=== PATIENT | female | born 1935 | race Caucasian/White ===

== ENCOUNTER 2017-02-09 20:58 | Emergency (ER) | payer OTHER ==
--- NOTE | 2017-02-09 21:12 | EDPHY ---
H & P Stated Complaint: ETOH,pt found laying face down in kitchen by HPI/ROS: HPI CHIEF COMPLAINT: Alcohol intoxication, found down HISTORY OF PRESENT ILLNESS: This patient very pleasant 81-year-old female, she presents emergency room by EMS after 911 was called and she was lying face down on her kitchen floor. She does admit to drinking wine this evening. Unclear exactly how much she drank. Upon arrival to the emergency room she smells of alcohol and is highly intoxicated. Slurring her speech. She has no recollection of the events. Family found her face down. Unknown LOC. Patient denies trauma or pain anywhere. Past Medical History: Denies significant medical history Past Surgical History: Denies recent surgical history Social History: Denies daily use of drugs alcohol tobacco products was drinking alcohol this evening. at bedside, son at bedside. Family History: Noncontributory ROS REVIEW OF SYSTEMS: A comprehensive 10 point review of systems is otherwise negative aside from elements mentioned in the history of present illness. Exam Constitutional smells of alcohol, triage nursing summary reviewed, vital signs reviewed, awake/alert. Eyes normal conjunctivae and sclera, EOMI, PERRLA. HENT head/neck: Atraumatic, normal inspection, atraumatic, moist mucus membranes, no epistaxis, neck supple/ no meningismus, no raccoon eyes. Respiratory clear to auscultation bilaterally, normal breath sounds, no respiratory distress, no wheezing. Cardiovascular rate normal, regular rhythm, no murmur, no edema, distal pulses normal. Gastrointestinal soft, non-tender, no rebound, no guarding, normal bowel sounds, no distension, no pulsatile mass. Genitourinary no CVA tenderness. Musculoskeletal no midline vertebral tenderness, full range of motion, no calf swelling, no tenderness of extremities, no meningismus, good pulses, neurovascularly intact. Skin pink, warm, & dry, no rash, skin atraumatic. Neurologic horizontal beating nystagmus consistent with acute alcohol intoxication awake, alert and oriented x 3, AAOx3, moves all 4 extremities equally, motor intact, sensory intact, CN II-XII intact, normal cerebellar, normal vision, slurring speech Psychiatric normal mood/affect. Heme/Lymph/Immune no lymphadenopathy. Differential Diagnosis: Includes but is not limited to in a particular order acute alcohol intoxication, electrolyte disturbance, dehydration, intracranial bleed, skull fracture Medical Decision Making: Plan for this patient check basic blood work and alcohol level, CT head without contrast for trauma. Re-evaluation: CT scan of the head without IV contrast The results of the study are atrophy but no acute trauma.. The study was read by Dr. Melida Cole I viewed the images myself on the PACS system. 2231: Serum alcohol 253. 2236: Re-evaluation at this time patient resting comfortably. Requesting be discharged home. Son at bedside would like to take her home. at bedside. Blood work is reassuring, alcohol level 253. CT head shows no acute intracranial trauma given acute alcohol intoxication and found down on the floor. Patient mentating appropriately she does have slurred speech. Stable gait she would like to go home with her son son is agreeable with this. Source: Patient - Personal History Current Tetanus/Diphtheria Vaccine: Unsure Current Tetanus Diphtheria and Acellular Pertussis (TDAP): Unsure - Medical/Surgical History Hx Asthma: No Hx Chronic Respiratory Disease: No Hx Diabetes: No Hx Cardiac Disease: No Hx Renal Disease: No Hx Cirrhosis: No Hx Alcoholism: No Hx HIV/AIDS: No Hx Splenectomy or Spleen Trauma: No Other PMH: cataracts - Social History Smoking Status: Never smoked Constitutional: Initial Vital Signs Temperature (C) 36.8 C 02/09/17 21:09 Heart Rate 93 02/09/17 21:09 Respiratory Rate 20 02/09/17 21:09 Blood Pressure 165/84 H 02/09/17 21:09 O2 Sat (%) 97 02/09/17 21:09 O2 Delivery Mode Room Air Allergies/Adverse Reactions: streptomycin [Streptomycin] Allergy (Severe, Verified 02/09/17 21:10) Swelling, itching Kiwi fruit Allergy (Severe, Uncoded 08/27/10 13:47) Difficulty breathing Home Medications: Medication Instructions Recorded AMBIEN 03/13/10 Medical Decision Making - Diagnostics Imaging Results: Imaging Impressions Head CT 02/09/17 21:25 Impression: Atrophy and microvascular ischemic disease. Findings and recommendations discussed with Shad Alexandra MD at 2200 hour, . Final report concurs with initial preliminary interpretation. - Data Points Laboratory Results: Laboratory Results 02/09/17 21:28 02/09/17 21:28 05/16/17 05/16/17 05/16/17 21:28 21:28 21:28 WBC 5.85 10^3/uL 10^3/uL (3.80-9.50) RBC 4.53 10^6/uL 10^6/uL (4.18-5.33) Hgb 15.0 g/dL g/dL (12.6-16.3) Hct 44.4 % % (38.0-47.0) MCV 98.0 fL fL (81.5-99.8) MCH 33.1 pg pg (27.9-34.1) MCHC 33.8 g/dL g/dL (32.4-36.7) RDW 12.5 % % (11.5-15.2) Plt Count 162 10^3/uL 10^3/uL (150-400) MPV 9.8 fL fL (8.7-11.7) Neut % (Auto) 50.2 % % (39.3-74.2) Lymph % (Auto) 41.4 % % (15.0-45.0) [place] % (Auto) 6.3 % % (4.5-13.0) Eos % (Auto) 1.4 % % (0.6-7.6) Baso % (Auto) 0.5 % % (0.3-1.7) Nucleat RBC Rel Count 0.0 % % (0.0-0.2) Absolute Neuts (auto) 2.94 10^3/uL 10^3/uL (1.70-6.50) Absolute Lymphs (auto) 2.42 10^3/uL 10^3/uL (1.00-3.00) Absolute Monos (auto) 0.37 10^3/uL 10^3/uL (0.30-0.80) Absolute Eos (auto) 0.08 10^3/uL 10^3/uL (0.03-0.40) Absolute Basos (auto) 0.03 10^3/uL 10^3/uL (0.02-0.10) Absolute Nucleated RBC 0.00 10^3/uL 10^3/uL (0-0.01) Immature Gran % 0.2 % % (0.0-1.1) Immature Gran # 0.01 10^3/uL 10^3/uL (0.00-0.10) PT 12.8 SEC SEC (12.0-15.0) INR 0.97 (0.83-1.16) APTT 23.8 SEC SEC (23.0-38.0) Sodium 144 mEq/L mEq/L (134-144) Potassium 3.9 mEq/L mEq/L (3.5-5.2) Chloride 108 mEq/L mEq/L (97-110) Carbon Dioxide 23 mEq/l mEq/l (22-31) Anion Gap 13 mEq/L mEq/L (8-16) BUN 18 mg/dL mg/dL (7-23) Creatinine 0.7 mg/dL mg/dL (0.6-1.0) Estimated GFR > 60 Glucose 96 mg/dL mg/dL (70-100) Calcium 9.2 mg/dL mg/dL (8.5-10.4) Ethyl Alcohol 253 mg/dL H mg/dL (0-10) Departure - Departure Disposition: Home, Routine, Self-Care Clinical Impression: Alcoholic intoxication Qualifiers: Complication of substance-induced condition: uncomplicated Qualified Code(s): F10.120 - Alcohol abuse with intoxication, uncomplicated Condition: Good Instructions: Alcohol Intoxication (ED) Referrals: Patient,NotPresent [Primary Care Provider] - As per Instructions
[2017-02-09 21:36] LABS: % IMMATURE GRANULYOCYTES 0.2 % (0.0-1.1); ABSOLUTE IMMATURE GRANULOCYTES 0.01 10^3/uL (0.00-0.10); ADD DIFF? NO; ADD MORPH? NO; ADD SCAN? NO; ATYPICAL LYMPHOCYTE FLAG 20 (0-99); FRAGMENT RBC FLAG 0 (0-99); HEMATOCRIT 44.4 % (38.0-47.0); LEFT SHIFT FLG 0 (0-99); LIPEMIA HEMOLYSIS FLAG 90 (0-99); MEAN CELL HEMOGLOBIN 33.1 pg (27.9-34.1); MEAN CELL HEMOGLOBIN CONCENTR. 33.8 g/dL (32.4-36.7); MEAN PLATELET VOLUME 9.8 fL (8.7-11.7); PLATELET CLUMPS FLAG 0 (0-99); PLATELET COUNT 162 10^3/uL (150-400); RED BLOOD CELL COUNT 4.53 10^6/uL (4.18-5.33); RED CELL DISTRIBUTION WIDTH 12.5 % (11.5-15.2)
[2017-02-09 21:44] LABS: INR 0.97 (0.83-1.16); PROTIME(PATIENT) 12.8 SEC (12.0-15.0)
[2017-02-09 21:45] LABS: APTT 23.8 SEC (23.0-38.0)
[2017-02-09 22:08] LABS: ANION GAP 13 mEq/L (8-16); CALCIUM 9.2 mg/dL (8.5-10.4); CARBON DIOXIDE 23 mEq/l (22-31); CHLORIDE 108 mEq/L (97-110); CREATININE 0.7 mg/dL (0.6-1.0); ETHANOL SERUM 253 mg/dL (0-10); GLOMERULAR FILTRATION RATE > 60; GLUCOSE 96 mg/dL (70-100); POTASSIUM 3.9 mEq/L (3.5-5.2); SODIUM 144 mEq/L (134-144)
[2017-02-09 23:01] VITALS: RESP 16
[2017-02-09 23:15] VITALS: BP 164/91; PULSE 74; TEMP 97.7; O2SAT 95
== END 2017-02-09 23:15 | disposition home or self-care (01) ==
LOC: EDUNIT#
DX: F10.120 Alcohol abuse with intoxication, uncomplicated (principal)
CPT/HCPCS: G0480

== ENCOUNTER 2017-04-25 21:55 | Inpatient (IN) | payer OTHER ==
--- NOTE | 2017-04-25 22:07 | EDPHY ---
H & P Stated Complaint: word finding difficulty HPI/ROS: HPI CHIEF COMPLAINT: Dysarthria, word-finding difficulty, word salad HISTORY OF PRESENT ILLNESS: This patient 81-year-old female, does not take any daily medications, she presents emergency room by private vehicle with her sons at bedside and . Her son noticed around 115PM today while he was visiting her to bring her food that she had trouble getting her words out and word salad with speech difficulties. He states this pretty much lasted throughout the day. He went to check on her tonight again and realized that she was still having trouble with her words and so he encouraged her to come to the emergency room she had however she did not want to come. Finally both sons convinced her to come to the emergency room at around 10:00 p.m.. Her one son does report to me that on he was speaking to her over the phone about a document and she had great difficulty describing what the document said this is highly unlike her cording to her son. They are concerned that she may have had a stroke today. They also report a very unsteady slow gait. Also report recurrent falls over the past few years. Of note upon arrival here in emergency room blood pressure is 215 systolic over 90. Heart rate 80. She does not take any blood pressure medication. Additionally the patient tells me her left face feels funny she does not described as well she denies being numb or tingling, denies insensate her change from her right side her face. She tells me left-sided face feels different. Denies any focal weakness. Denies chest pain or shortness of breath. Additionally she did take 2 baby aspirin prior to arrival. Past Medical History: Denies any significant medical history, specifically denies hypertension. Breast cancer. Past Surgical History: Cataract surgery, breast cancer surgery Social History: Frequent alcohol use, denies drugs or tobacco. at bedside. Son is at bedside. Family History: Noncontributory ROS REVIEW OF SYSTEMS: A comprehensive 10 point review of systems is otherwise negative aside from elements mentioned in the history of present illness. Exam Constitutional appears well nontoxic triage nursing summary reviewed, vital signs reviewed, awake/alert. Blood pressure noted 215/90. Eyes normal conjunctivae and sclera, EOMI, PERRLA. HENT normal inspection, atraumatic, moist mucus membranes, no epistaxis, neck supple/ no meningismus, no raccoon eyes. Respiratory clear to auscultation bilaterally, normal breath sounds, no respiratory distress, no wheezing. Cardiovascular rate normal, regular rhythm, no murmur, no edema, distal pulses normal. Gastrointestinal soft, non-tender, no rebound, no guarding, normal bowel sounds, no distension, no pulsatile mass. Genitourinary no CVA tenderness. Musculoskeletal no midline vertebral tenderness, full range of motion, no calf swelling, no tenderness of extremities, no meningismus, good pulses, neurovascularly intact. Skin pink, warm, & dry, no rash, skin atraumatic. Neurologic awake, alert and oriented x 3, AAOx3, moves all 4 extremities equally, motor intact, sensory intact, CN II-XII intact, normal cerebellar, normal vision, some slow response with her speech I do not appreciate dysarthria , she appears to have some word-finding difficulties. Appears to answer questions with short answers. Psychiatric normal mood/affect. Heme/Lymph/Immune no lymphadenopathy. Differential Diagnosis: Includes but is not limited to in a particular order, hypertensive urgency, hypertensive emergency, CVA, TIA, intracranial bleed Medical Decision Making: Plan for this patient workup for stroke, she will need full registered nurse cardiac telemetry, EKG, blood work, coags, CT angio head and neck CT head without contrast. She does not meet tPA criteria as the symptoms started according to her son around 115 today possibly earlier. As earlier in the week on she was having trouble with describing a letter. Highly unlike her. Reason she does not meet tPA criteria she is out of the window. Re-evaluation: EKG interpretation by me on record in [employer] system. Impression time of EKG 4. This is sinus rhythm rate of 88, some motion artifact in the inferior leads however Q-waves noted V1 V2 V3. 2240PM: Re-evaluation at this time blood pressure 189/80 without intervention. Heart rate 87. 2335: CT scan of the angiogram head and neck,. The results of the study are negative for acute aneurysm, bleed, infarct, thrombus The study was read by Dr. Schreiber I viewed the images myself on the PACS system. CT scan of the head without IV contrast The results of the study are negative for acute bleed or stroke.. The study was read by Dr. Schreiber I viewed the images myself on the PACS system. ED x-ray chest one view: COPD appearing lungs. Otherwise unremarkable chest x- ray. 2336: Patient remained stable. Blood pressure currently 153/70. Patient be admitted to the hospitalist service for further evaluation and CVA workup. Patient will need an MRI. Neurology will need to be consult. At this time she does not have any indication for tPA. Her symptoms have not progressed here in emergency room. Her CT head angio are unremarkable. Blood work reassuring. Blood pressures improved on its own. 1205AM: Patient be admitted to the hospitalist service Dr. Ruiz to complete stroke evaluation and workup. 1247AM: Patient's urinalysis resulted 1+ leukocyte Estrace and whites. Given her confusion. I will treat this. Urine culture sent. 1 g Rocephin given. Source: Patient - Personal History Current Tetanus/Diphtheria Vaccine: Yes Current Tetanus Diphtheria and Acellular Pertussis (TDAP): Yes - Medical/Surgical History Hx Asthma: Yes Hx Chronic Respiratory Disease: No Hx Diabetes: No Hx Cardiac Disease: No Hx Renal Disease: No Hx Cirrhosis: No Hx Alcoholism: No Hx HIV/AIDS: No Hx Splenectomy or Spleen Trauma: No Other PMH: cataracts, asthma, - Social History Smoking Status: Never smoked Constitutional: Initial Vital Signs Temperature (C) 36.8 C 04/25/17 22:01 Heart Rate 74 04/25/17 22:01 Respiratory Rate 16 04/25/17 22:01 Blood Pressure 205/137 H 04/25/17 22:01 O2 Sat (%) 96 04/25/17 22:01 O2 Delivery Mode Room Air Allergies/Adverse Reactions: streptomycin [Streptomycin] Allergy (Severe, Verified 04/25/17 22:00) Swelling, itching Kiwi fruit Allergy (Severe, Uncoded 04/25/17 22:00) Difficulty breathing Home Medications: Medication Instructions Recorded AMBIEN 03/13/10 Medical Decision Making - Diagnostics Imaging Results: Imaging Impressions Chest X-Ray 04/25/17 22:19 Impression: 1. Mild increase in scarring at the right lung base and left apex. 2. Hyperexpanded lungs suggestive of COPD/emphysema. 3. Stable moderate anterior wedge compression fracture mid thoracic spine. If indicated, consider DEXA scan at some point to evaluate underlying bone mineral density. Head CT 04/25/17 22:19 Impression: 1. Stable moderate atrophy. 2. No hemorrhage, mass effect, or definite acute peripheral infarct. 3. Stable moderate microvascular ischemic disease. If symptoms worsen, additional imaging may be necessary. Findings discussed with Shad Alexandra MD at 23:20 hour, 04/25/2017. Head CTA 04/25/17 22:19 Impression: 1. No evidence of stenosis involving the carotid arteries or vertebral arteries in the neck. Moderate stenosis mid ICA bilaterally. 2. Normal variation around the [place] as detailed above. 3. Moderate stenosis proximal to mid right posterior cerebral artery. Note: All calculations were performed using NASCET criteria. Findings discussed with Shad Alexandra MD at 23:34 hour, 04/25/2017. Neck CTA 04/25/17 22:19 Impression: 1. No evidence of stenosis involving the carotid arteries or vertebral arteries in the neck. Moderate stenosis mid ICA bilaterally. 2. Normal variation around the [place] as detailed above. 3. Moderate stenosis proximal to mid right posterior cerebral artery. Note: All calculations were performed using NASCET criteria. Findings discussed with Shad Alexandra MD at 23:34 hour, 04/25/2017. - Data Points Laboratory Results: Laboratory Results 04/25/17 22:14 04/25/17 22:14 04/25/17 04/25/17 04/25/17 23:30 22:14 22:14 WBC RBC Hgb Hct MCV MCH MCHC RDW Plt Count MPV Neut % (Auto) Lymph % (Auto) [place] % (Auto) Eos % (Auto) Baso % (Auto) Nucleat RBC Rel Count Absolute Neuts (auto) Absolute Lymphs (auto) Absolute Monos (auto) Absolute Eos (auto) Absolute Basos (auto) Absolute Nucleated RBC Immature Gran % Immature Gran # PT 13.4 SEC SEC (12.0-15.0) INR 1.03 (0.83-1.16) APTT 25.2 SEC SEC (23.0-38.0) Sodium 143 mEq/L mEq/L (134-144) Potassium 3.5 mEq/L mEq/L (3.5-5.2) Chloride 107 mEq/L mEq/L (97-110) Carbon Dioxide 22 mEq/l mEq/l (22-31) Anion Gap 14 mEq/L mEq/L (8-16) BUN 21 mg/dL mg/dL (7-23) Creatinine 0.7 mg/dL mg/dL (0.6-1.0) Estimated GFR > 60 Glucose 91 mg/dL mg/dL (70-100) Calcium 9.5 mg/dL mg/dL (8.5-10.4) Magnesium 1.9 mg/dL mg/dL (1.6-2.3) Total Bilirubin 1.2 mg/dL mg/dL (0.1-1.4) Conjugated Bilirubin 0.3 mg/dL mg/dL (0.0-0.5) Unconjugated Bilirubin 0.9 mg/dL mg/dL (0.0-1.1) AST 28 IU/L IU/L (14-46) ALT 33 IU/L IU/L (9-52) Alkaline Phosphatase 91 IU/L IU/L (38-126) Creatine Kinase 68 IU/L IU/L (0-156) CK-MB (CK-2) Fraction 2.23 ng/mL ng/mL (0-3.19) Troponin I < 0.012 ng/mL ng/mL (0-0.034) NT-Pro-B Natriuret Pep 174 pg/mL pg/mL (0-450) Total Protein 7.2 g/dL g/dL (6.3-8.2) Albumin 4.6 g/dL g/dL (3.5-5.0) Lipase 358.0 IU/L H IU/L (23-300) Urine Color COLORLESS Urine Appearance CLEAR Urine pH 6.0 (5.0-7.5) Ur Specific [place] 1.016 (1.002-1.030) Urine Protein NEGATIVE (NEGATIVE) Urine Ketones TRACE H (NEGATIVE) Urine Blood NEGATIVE (NEGATIVE) Urine Nitrate NEGATIVE (NEGATIVE) Urine Bilirubin NEGATIVE (NEGATIVE) Urine Urobilinogen NEGATIVE EU EU (0.2-1.0) Ur Leukocyte Esterase 1+ H (NEGATIVE) Urine RBC 1-3 /hpf /hpf (0-3) Urine WBC 15-25 /hpf H /hpf (0-3) Ur Epithelial Cells Not Reported Urine Mucus TRACE /lpf /lpf (NONE-1+) Urine Glucose NEGATIVE (NEGATIVE) Ethyl Alcohol < 10 mg/dL mg/dL (0-10) 04/25/17 22:14 WBC 6.50 10^3/uL 10^3/uL (3.80-9.50) RBC 4.28 10^6/uL 10^6/uL (4.18-5.33) Hgb 14.0 g/dL g/dL (12.6-16.3) Hct 41.6 % % (38.0-47.0) MCV 97.2 fL fL (81.5-99.8) MCH 32.7 pg pg (27.9-34.1) MCHC 33.7 g/dL g/dL (32.4-36.7) RDW 12.0 % % (11.5-15.2) Plt Count 156 10^3/uL 10^3/uL (150-400) MPV 9.6 fL fL (8.7-11.7) Neut % (Auto) 51.1 % % (39.3-74.2) Lymph % (Auto) 39.7 % % (15.0-45.0) [place] % (Auto) 7.8 % % (4.5-13.0) Eos % (Auto) 0.9 % % (0.6-7.6) Baso % (Auto) 0.3 % % (0.3-1.7) Nucleat RBC Rel Count 0.0 % % (0.0-0.2) Absolute Neuts (auto) 3.32 10^3/uL 10^3/uL (1.70-6.50) Absolute Lymphs (auto) 2.58 10^3/uL 10^3/uL (1.00-3.00) Absolute Monos (auto) 0.51 10^3/uL 10^3/uL (0.30-0.80) Absolute Eos (auto) 0.06 10^3/uL 10^3/uL (0.03-0.40) Absolute Basos (auto) 0.02 10^3/uL 10^3/uL (0.02-0.10) Absolute Nucleated RBC 0.00 10^3/uL 10^3/uL (0-0.01) Immature Gran % 0.2 % % (0.0-1.1) Immature Gran # 0.01 10^3/uL 10^3/uL (0.00-0.10) PT INR APTT Sodium Potassium Chloride Carbon Dioxide Anion Gap BUN Creatinine Estimated GFR Glucose Calcium Magnesium Total Bilirubin Conjugated Bilirubin Unconjugated Bilirubin AST ALT Alkaline Phosphatase Creatine Kinase CK-MB (CK-2) Fraction Troponin I NT-Pro-B Natriuret Pep Total Protein Albumin Lipase Urine Color Urine Appearance Urine pH Ur Specific [place] Urine Protein Urine Ketones Urine Blood Urine Nitrate Urine Bilirubin Urine Urobilinogen Ur Leukocyte Esterase Urine RBC Urine WBC Ur Epithelial Cells Urine Mucus Urine Glucose Ethyl Alcohol Medications Given: Discontinued Medications Sodium Chloride (Ns) 1,000 mls @ 0 mls/hr IV ONCE ONE; Wide Open PRN Reason: Protocol Stop: 04/25/17 22:20 Last Admin: 04/25/17 22:27 Dose: 1,000 mls Departure - Departure Disposition: [facility] Clinical Impression: Word finding difficulty Hypertension Qualifiers: Hypertension type: essential hypertension Qualified Code(s): I10 - Essential ( primary) hypertension Urinary tract infection Qualifiers: Urinary tract infection type: acute cystitis Hematuria presence: without hematuria Qualified Code(s): N30.00 - Acute cystitis without hematuria Condition: Fair
--- NOTE | 2017-04-25 22:16 | CPEKG ---
Heart Rate: 88 RR Interval: 682 P-R Interval: 172 QRSD Interval: 80 QT Interval: 360 QTC Interval: 436 P [place]: 47 QRS [place]: 79 EKG Severity - ABNORMAL ECG - EKG Impression: SINUS RHYTHM EKG Impression: Artifact Electronically Signed By: Baldemar Lara 28-Apr-2017 10:55:33
[2017-04-25] MEDS ORDERED: NS 1,000 ML IV ONE (22:19)
[2017-04-25 22:32] LABS: % IMMATURE GRANULYOCYTES 0.2 % (0.0-1.1); ABSOLUTE IMMATURE GRANULOCYTES 0.01 10^3/uL (0.00-0.10); ADD DIFF? NO; ADD MORPH? NO; ADD SCAN? NO; ATYPICAL LYMPHOCYTE FLAG 20 (0-99); FRAGMENT RBC FLAG 0 (0-99); HEMATOCRIT 41.6 % (38.0-47.0); LEFT SHIFT FLG 0 (0-99); LIPEMIA HEMOLYSIS FLAG 80 (0-99); MEAN CELL HEMOGLOBIN 32.7 pg (27.9-34.1); MEAN CELL HEMOGLOBIN CONCENTR. 33.7 g/dL (32.4-36.7); MEAN CELL VOLUME 97.2 fL (81.5-99.8); MEAN PLATELET VOLUME 9.6 fL (8.7-11.7); PLATELET CLUMPS FLAG 60 (0-99); PLATELET COUNT 156 10^3/uL (150-400); RED BLOOD CELL COUNT 4.28 10^6/uL (4.18-5.33)
[2017-04-25] MEDS ORDERED: IOPAMIDOL (ISOVUE 370) 100 ML BTL IV ONE (22:39)
[2017-04-25 22:40] LABS: INR 1.03 (0.83-1.16); PROTIME(PATIENT) 13.4 SEC (12.0-15.0)
[2017-04-25 22:41] LABS: APTT 25.2 SEC (23.0-38.0)
[2017-04-25 22:44] LABS: ALANINE AMINOTRANSFERASE 33 IU/L (9-52); ALBUMIN 4.6 g/dL (3.5-5.0); ALKALINE PHOSPHATASE 91 IU/L (38-126); ANION GAP 14 mEq/L (8-16); ASPARTATE AMINOTRANSFERASE 28 IU/L (14-46); BILIRUBIN,TOTAL 1.2 mg/dL (0.1-1.4); BILIRUBIN-CONJUGATED 0.3 mg/dL (0.0-0.5); BILIRUBIN-UNCONJUGATED 0.9 mg/dL (0.0-1.1); CALCIUM 9.5 mg/dL (8.5-10.4); CARBON DIOXIDE 22 mEq/l (22-31); CHLORIDE 107 mEq/L (97-110); CREATININE 0.7 mg/dL (0.6-1.0); ETHANOL SERUM < 10 mg/dL (0-10); GLOMERULAR FILTRATION RATE > 60; GLUCOSE 91 mg/dL (70-100); MAGNESIUM 1.9 mg/dL (1.6-2.3); POTASSIUM 3.5 mEq/L (3.5-5.2); SODIUM 143 mEq/L (134-144); TOTAL PROTEIN 7.2 g/dL (6.3-8.2)
[2017-04-25 22:56] LABS: CREATINE KINASE-MB FRACTION 2.23 ng/mL (0-3.19); TROPONIN I < 0.012 ng/mL (0-0.034)
[2017-04-25 23:47] LABS: COLOR COLORLESS; LEUKOCYTE ESTERASE,URINE 1+ (NEGATIVE); NITRITE,URINE NEGATIVE (NEGATIVE)
[2017-04-26 00:15] LABS: MUCUS TRACE /lpf (NONE-1+); WBC,URINE 15-25 /hpf (0-3)
[2017-04-26] MEDS ORDERED: ACETAMINOPHEN 325 MG TAB PO PRN (01:35)
[2017-04-26] MEDS ORDERED: oxyCODONE IR 5 MG TAB PO PRN (01:35)
[2017-04-26] MEDS ORDERED: ONDANSETRON DISINTEGRATING 4 MG TAB PO PRN (01:35)
[2017-04-26] MEDS ORDERED: ONDANSETRON 4 MG/2 ML VIAL IVP PRN (01:35)
[2017-04-26] MEDS ORDERED: LABETALOL HCL 5 MG/ML 20 ML MDV IVP PRN (01:35)
[2017-04-26] MEDS ORDERED: PROMETHAZINE HCL 25 MG/ML INJ IVP PRN (01:35)
--- NOTE | 2017-04-26 03:04 | PDGENHP ---
History and Physical - Chief Complaint word finding difficulties - History of Present Illness 81 yo F with PMH of breast and cervical cancer as well as daily etoh use presenting with 4 days of word finding difficulty and slurred speech. Additional history is provided by son present at bedside. He notes that he and his brother initially noticed symptoms on when their mom seemed to have difficulty finding the right words to use and was having issues doing normal things that she does every day such as use her iPad and operate the mouse on her computer. Today the son present at bedside notes that his mother left him a voicemail that made no sense at all and therefore he went to check on her. She seemed to have increasing issues with speech over the course of the day, would answer questions with one word only or with what seemed to be random series of words that made no sense. Her speech also sounded slurred and she was having gait instability. She also complained of a strange feeling on her left cheek--she denies it was numbness but is unable to describe exactly what it felt like. Since arrival in the ER she has also developed urinary incontinence which has never been an issue for her in the past. She initially denied that she was having any issues with speech, but after attempting to answer questions while I was in the room, she does admit that she is having a hard time finding the words she wants to use--she states she knows what she wants to say, but the words come out wrong. She was recently seen in the ER here for a fall in the setting of intoxication with BAL at that time greater than 250. She notes she has been drinking including earlier today but denies having more than 1 or 2 drinks today. She has not had fever or chills, denies urinary burning, she has never had similar issues in the past. History Information - Allergies/Home Medication List Allergies/Adverse Reactions: streptomycin [Streptomycin] Allergy (Severe, Verified 04/25/17 22:00) Swelling, itching Kiwi fruit Allergy (Severe, Uncoded 04/25/17 22:00) Difficulty breathing Home Medications: AMBIEN 03/13/10 [Last Taken Unknown] I have personally reviewed and updated: family history, medical history, social history, surgical history - Past Medical History cancer (breast, cervical and basal cell) Additional medical history: hx of TB s/p partial lobectomy - Surgical History Reports: hysterectomy, mastectomy Additional surgical history: cataract surgery. partial lobectomy - Family History Positive for: cancer (aunts with breast cancer) - Social History Smoking Status: Never smoked Alcohol Use: Other (average of 1-2 per day) Drug Use: None Additional social history: , 2 sons, lives independently with her Review of Systems ROS: 10pt was reviewed & negative except for what was stated in HPI & below Physical Exam Temp Pulse Resp BP Pulse Ox 36.5 C 97 18 169/81 H 94 04/26/17 01:27 04/26/17 01:27 04/26/17 01:27 04/26/17 01:27 04/26/17 01:27 Constitutional: no apparent distress, appears nourished Eyes: anicteric sclera, No PERRL (anisocoria--right > left) Ears, Nose, Mouth, Throat: moist mucous membranes, hearing normal Cardiovascular: regular rate and rhythym, systolic murmur, pulses symmetric bilaterally, No edema Respiratory: no respiratory distress, no rales or rhonchi, clear to auscultation Gastrointestinal: normoactive bowel sounds, soft, non-tender abdomen Genitourinary: No no bladder tenderness Skin: warm, normal color Musculoskeletal: full muscle strength Neurologic: CN II-XII Intact (other than anisocoria which is chronic), other ( expressive aphasia), No facial droop Psychiatric: not encephalopathic Lab Data & Imaging Review 04/25/17 22:14 04/25/17 22:14 WBC 6.50 10^3/uL (3.80-9.50) 04/25/17 22:14 RBC 4.28 10^6/uL (4.18-5.33) 04/25/17 22:14 Hgb 14.0 g/dL (12.6-16.3) 04/25/17 22:14 Hct 41.6 % (38.0-47.0) 04/25/17 22:14 MCV 97.2 fL (81.5-99.8) 04/25/17 22:14 MCH 32.7 pg (27.9-34.1) 04/25/17 22:14 MCHC 33.7 g/dL (32.4-36.7) 04/25/17 22:14 RDW 12.0 % (11.5-15.2) 04/25/17 22:14 Plt Count 156 10^3/uL (150-400) 04/25/17 22:14 MPV 9.6 fL (8.7-11.7) 04/25/17 22:14 Neut % (Auto) 51.1 % (39.3-74.2) 04/25/17 22:14 Lymph % (Auto) 39.7 % (15.0-45.0) 04/25/17 22:14 Stone % (Auto) 7.8 % (4.5-13.0) 04/25/17 22:14 Eos % (Auto) 0.9 % (0.6-7.6) 04/25/17 22:14 Baso % (Auto) 0.3 % (0.3-1.7) 04/25/17 22:14 Nucleat RBC Rel Count 0.0 % (0.0-0.2) 04/25/17 22:14 Absolute Neuts (auto) 3.32 10^3/uL (1.70-6.50) 04/25/17 22:14 Absolute Lymphs (auto) 2.58 10^3/uL (1.00-3.00) 04/25/17 22:14 Absolute Monos (auto) 0.51 10^3/uL (0.30-0.80) 04/25/17 22:14 Absolute Eos (auto) 0.06 10^3/uL (0.03-0.40) 04/25/17 22:14 Absolute Basos (auto) 0.02 10^3/uL (0.02-0.10) 04/25/17 22:14 Absolute Nucleated RBC 0.00 10^3/uL (0-0.01) 04/25/17 22:14 Immature Gran % 0.2 % (0.0-1.1) 04/25/17 22:14 Immature Gran # 0.01 10^3/uL (0.00-0.10) 04/25/17 22:14 PT 13.4 SEC (12.0-15.0) 04/25/17 22:14 INR 1.03 (0.83-1.16) 04/25/17 22:14 APTT 25.2 SEC (23.0-38.0) 04/25/17 22:14 Sodium 143 mEq/L (134-144) 04/25/17 22:14 Potassium 3.5 mEq/L (3.5-5.2) 04/25/17 22:14 Chloride 107 mEq/L (97-110) 04/25/17 22:14 Carbon Dioxide 22 mEq/l (22-31) 04/25/17 22:14 Anion Gap 14 mEq/L (8-16) 04/25/17 22:14 BUN 21 mg/dL (7-23) 04/25/17 22:14 Creatinine 0.7 mg/dL (0.6-1.0) 04/25/17 22:14 Estimated GFR > 60 04/25/17 22:14 Glucose 91 mg/dL (70-100) 04/25/17 22:14 Calcium 9.5 mg/dL (8.5-10.4) 04/25/17 22:14 Magnesium 1.9 mg/dL (1.6-2.3) 04/25/17 22:14 Total Bilirubin 1.2 mg/dL (0.1-1.4) 04/25/17 22:14 Conjugated Bilirubin 0.3 mg/dL (0.0-0.5) 04/25/17 22:14 Unconjugated Bilirubin 0.9 mg/dL (0.0-1.1) 04/25/17 22:14 AST 28 IU/L (14-46) 04/25/17 22:14 ALT 33 IU/L (9-52) 04/25/17 22:14 Alkaline Phosphatase 91 IU/L (38-126) 04/25/17 22:14 Creatine Kinase 68 IU/L (0-156) 04/25/17 22:14 CK-MB (CK-2) Fraction 2.23 ng/mL (0-3.19) 04/25/17 22:14 Troponin I < 0.012 ng/mL (0-0.034) 04/25/17 22:14 NT-Pro-B Natriuret Pep 174 pg/mL (0-450) 04/25/17 22:14 Total Protein 7.2 g/dL (6.3-8.2) 04/25/17 22:14 Albumin 4.6 g/dL (3.5-5.0) 04/25/17 22:14 Lipase 358.0 IU/L (23-300) H 04/25/17 22:14 Urine Color COLORLESS 04/25/17 23:30 Urine Appearance CLEAR 04/25/17 23:30 Urine pH 6.0 (5.0-7.5) 04/25/17 23:30 Ur Specific [place] 1.016 (1.002-1.030) 04/25/17 23:30 Urine Protein NEGATIVE (NEGATIVE) 04/25/17 23:30 Urine Ketones TRACE (NEGATIVE) H 04/25/17 23:30 Urine Blood NEGATIVE (NEGATIVE) 04/25/17 23:30 Urine Nitrate NEGATIVE (NEGATIVE) 04/25/17 23:30 Urine Bilirubin NEGATIVE (NEGATIVE) 04/25/17 23:30 Urine Urobilinogen NEGATIVE EU (0.2-1.0) 04/25/17 23:30 Ur Leukocyte Esterase 1+ (NEGATIVE) H 04/25/17 23:30 Urine RBC 1-3 /hpf (0-3) 04/25/17 23:30 Urine WBC 15-25 /hpf (0-3) H 04/25/17 23:30 Ur Epithelial Cells Not Reported 04/25/17 23:30 Urine Mucus TRACE /lpf (NONE-1+) 04/25/17 23:30 Urine Glucose NEGATIVE (NEGATIVE) 04/25/17 23:30 Ethyl Alcohol < 10 mg/dL (0-10) 04/25/17 22:14 Visualized and Interpreted imaging results: Yes Interpretation: head ct: no acute process. head/neck CTA: moderate ICA and moderate r employment advisor stenosis. cxr: hyperexpanded c/w copd Visualized and Interpreted EKG results: Yes EKG Interpretation: Positive for: normal sinsus rhythm Assessment & Plan Assessment: Hypertension (Acute) Urinary tract infection (Acute) Word finding difficulty (Acute) 81 yo F w/hx of breast/cervical cancer and etoh abuse pw expressive aphasia concerning for cva # expressive aphasia: with stuttering sxs for at least the last several days and concerning for cva. Head ct negative other than atrophy, head/neck cta with only moderate stenosis. Plan for MRI brain/echo/telemetry monitoring/lipid panel /A1c in am. Neurology consulted. PT/OT/SKIN CARVER consults. Other possibility would be MS changes in setting of acute infectious process as next. # UTI: UA abnormal in patient with new onset urinary incontinence, cultures ordered and pending. Started on ctx and will continue for now pending urine culture data. # etoh abuse: patient with recent ER visit following LOC in the setting of intoxication and BAL >200, she notes she generally only has 1-2 drinks per day however and frequently will go w/o etoh without issues. Will start mvi/thiamine/ folate. LFTs wnl and BAL today zero # hypertension: on arrival BP initially with SBP >200 but has trended down without intervention, continue to monitor, patient not on any antihypertensives at baseline # hx of breast cancer/hx of cervical cancer/hx of treated TB: no acute issues # observation status, will likely need < 48 hours stay for eval/mgmt of above Patient new to my care. Old records reviewed and summarized as above. Care plan reviewed with ER doctor including cva r/o. Further hx obtained from patients son present at bedside.
[2017-04-26 04:59] LABS: % IMMATURE GRANULYOCYTES 0.3 % (0.0-1.1); ABSOLUTE IMMATURE GRANULOCYTES 0.02 10^3/uL (0.00-0.10); ADD DIFF? NO; ADD MORPH? NO; ADD SCAN? NO; ATYPICAL LYMPHOCYTE FLAG 0 (0-99); FRAGMENT RBC FLAG 0 (0-99); HEMATOCRIT 39.3 % (38.0-47.0); HEMOGLOBIN 13.3 g/dL (12.6-16.3); LEFT SHIFT FLG 0 (0-99); LIPEMIA HEMOLYSIS FLAG 90 (0-99); MEAN CELL HEMOGLOBIN 32.8 pg (27.9-34.1); MEAN CELL HEMOGLOBIN CONCENTR. 33.8 g/dL (32.4-36.7); MEAN CELL VOLUME 96.8 fL (81.5-99.8); MEAN PLATELET VOLUME 9.5 fL (8.7-11.7); PLATELET CLUMPS FLAG 0 (0-99); PLATELET COUNT 149 10^3/uL (150-400); RED BLOOD CELL COUNT 4.06 10^6/uL (4.18-5.33)
[2017-04-26 05:13] LABS: ANION GAP 9 mEq/L (8-16); CARBON DIOXIDE 25 mEq/l (22-31); CHLORIDE 111 mEq/L (97-110); CREATININE 0.7 mg/dL (0.6-1.0); GLOMERULAR FILTRATION RATE > 60; GLUCOSE 80 mg/dL (70-100); POTASSIUM 3.8 mEq/L (3.5-5.2); SODIUM 145 mEq/L (134-144)
--- NOTE | 2017-04-26 08:51 | CPEKG ---
Heart Rate: 78 RR Interval: 769 P-R Interval: 172 QRSD Interval: 86 QT Interval: 388 QTC Interval: 442 P [place]: 97 QRS [place]: 89 T Wave [place]: 121 EKG Severity - ABNORMAL ECG - EKG Impression: SINUS RHYTHM EKG Impression: BORDERLINE RIGHT AXIS DEVIATION EKG Impression: CONSIDER LEFT VENTRICULAR HYPERTROPHY EKG Impression: POOR R WAVE PROGRESSION. CONSIDER ANTERIOR INFARCTION. Electronically Signed By: Gael Moore 26-Apr-2017 17:26:09
[2017-04-26 08:55] LABS: HEMOGLOBIN A1C 5.1 % (4.0-6.0)
--- NOTE | 2017-04-26 09:58 | GCON ---
[f rep st] CONSULTATION NEUROLOGIC CONSULTATION REFERRING PHYSICIAN: Lynne Ruiz MD HISTORY: The patient is an 81-year-old woman, whom I am asked to see in neurologic consultation for a chief complaint of word-finding difficulties, which have evolved over the last 3 or 4 days, but p articularly prominent yesterday. The patient is a limited historian, with limited insights about ex actly what has happened, but her son is in the room with her currently this morning, and able to giv e additional meaningful information. As far as 4 days ago, depending on which family members you as k, her son says that they have been aware of a little bit of hesitancy to speech or maybe slurring o f speech, word-finding challenges. This was not prominent enough to seek medical attention until ye sterday. She left him a voicemail that did not make a lot of sense, and this concerned him, and she was starting to have difficulty with normal activities such as using her iPad and operating the [facility] for her computer. She was having further problems with word finding yesterday, and either not co roshan up with the right word or making somewhat illogical statements. She also seemed a little bit u nsteady. This is what led to coming to the hospital for evaluation. She also had new onset of urin vianey incontinence, which has never been an issue before. This has occurred since coming to the emerg ency department. She has had some incontinence during the night. There has not been any complaint of focal weakness in the extremities. Yesterday, she had about 4 hours of complaining in the left c heek area of a pulling feeling or a little bit of numbness. She has not had fever. She has been fo und to have evidence of urinary tract infection, and has been started on antibiotics. No clear-cut alleviating or exacerbating factors for these symptoms, which do represent a significan t departure from her baseline. It is also true that she has had some changes in her short-term memory slowly evolving over the last year. Her son says that she will forget stories she has told or repeat herself, or she will forget information he has already told her and ask about it. This is not very prominent, but certainly re presents a change that he feels the patient's would also confirm as a mild decline. She has had some history of alcohol intoxication, for which she came to the emergency room with a level of 250 and reports drinking intermittently, but maybe averaging 1 or 2 drinks per day. Her blood alcoh ol level when she came to the hospital in this case was 0. She is not currently telling me of any specific complaints. ALLERGIES: Streptomycin and kiwi fruit. MEDICATIONS: She takes Ambien at home. PAST MEDICAL HISTORY: There is a history of breast cancer, cervical cancer, and basal cell, and his tory of TB, with remote lumpectomy. She tells me that some 50 years ago she had a fall and was told by a doctor that she had a TIA, but further details are unclear. She had recent cataract surgery o n the left. FAMILY HISTORY: Breast cancer. SOCIAL HISTORY: No History of smoking. She is . She lives in [place]. Average amount of d rinking is 1 or 2 drinks per day. No drug use. REVIEW OF SYSTEMS: 10-point review of systems completed and unremarkable except for that noted abov e. PHYSICAL EXAM: VITAL SIGNS: Blood pressure 159/70, pulse of 87, respirations 18, temperature 37.1. GENERAL: She is a well-developed woman in no acute distress. EYES: Clear. NECK: Supple with n o bruits or masses. CARDIAC: Regular rate and rhythm with no murmur. LUNGS: Clear. EXTREMITIES: No cyanosis or edema. NEUROLOGIC: She is awake alert and attentive. Her speech is clear and generally fluent, although a little slowe r than expected for normal. Not distinct word-finding loss during my evaluation. She is oriented t o person, place, time, general situation. She knows the month, the date, the year later. Remote memory is maintained. More recent memory is mildly reduced for details. Concentration and a ttention are reasonably good. General fund of knowledge seems to be preserved. Pupils 4 mm on the right, and 3 on the left, with decreased reactivity on the right. Funduscopic exam unremarkable. N o visual field loss. Extraocular movements intact. Normal facial sensation and strength. Palate e levates symmetrically. Tongue protrudes midline. Hearing is preserved. No weakness of head turnin g or shoulder shrug. Motor exam: Normal muscle bulk and tone, with no focal weakness. Strength is generally 5/5. Sensation is preserved for temperature and light touch. Reflexes are 2+ with no pa thologic reflexes. No ataxia on [id number]. LABORATORY STUDIES: Unremarkable CBC, INR, and electrolytes, except lipase elevated at 358. Urinal ysis with 15-25 white cells, leukocyte esterase positive. Tox screen negative for alcohol intoxicat ion. IMAGING: CT angiogram of the head and neck showed no significant stenoses. There is some tortuosit y mentioned in the mid internal carotid arteries, but no plaquing identified. Head CT shows no evid ence of hemorrhage or acute stroke. There is evidence of some stable atrophy compared to January, and microvascular ischemic changes are present. A brain MRI is ordered and is pending. Echocardiogram is also pending. IMPRESSION: The patient is being evaluated for some word-finding difficulties. A small stroke in t he left hemisphere is possible, although it is not certain at this point. She does not have a prior history of stroke, although she said some 50 years ago she might have had a transient ischemic shauna ck, but that is very nonspecific in her description. Risk factor is age, but no known coronary dise ase or arterial blockages. No known cardiac arrhythmias. It is possible that the bladder infection has contributed to some of these changes. It is a little unusual to have the prominence of inconti nence just from a relatively mild bladder infection, with no history of incontinence. I do not susp ect a spinal cord syndrome. Most strokes would not typically cause someone to have incontinence if it is just a small left hemisphere event. MRI will be helpful in that sense. She may be having rober y early mild cognitive impairment developing, based on what the son is describing over the last year , and certainly people in that situation can be vulnerable to relatively abrupt changes, such as a b ladder infection. With regard to alcohol use, this sounds like chronic usage, but she is not intoxi cated. That further puts her at risk for cerebral cognitive impairments, if she does have chronic a lcohol use, even if it is in a cykf-to-rovzrdmz degree, and she did have a hospitalization in the em ergency department on February 09, at which time, she was noted to have an elevated alcohol level of 25 3. Moving forward, I think cessation of alcohol would be appropriate or certainly reduction to no m ore than 1 drink of alcohol per day. We did not address that issue in the short-term. Her [employer] stroke scale should receive 0, or perhaps 1, for the very mild exp ressive language problems noted, although I did not detect that right in today's evaluations, so I hayder avelar still score it 0. She is currently on aspirin therapy 81 mg per day, and she had not been regu larly taking aspirin, so we should continue that. Lipid panel should be followed up on to determine whether we might consider statin therapy. We will follow up on MRI and echocardiogram results. I agree with the thiamine. We will see if treatment of the bladder infection leads to resolution of t he incontinence and all of these constellation of symptoms. Once she is discharged, a more formaliz ed and detailed neurocognitive assessment would be reasonable to establish a baseline and monitor fo r cognitive decline. /[id number]/MODL
[2017-04-26] MEDS ORDERED: NON-FORMULARY NEW DRUG (Zolpidem Tartrate [Ambien 10 Mg] 5 MG) PO PRN (10:46)
[2017-04-26] MEDS ORDERED: ALBUTEROL 60 PUFFS/8 GM MDI IH PRN (10:46)
--- NOTE | 2017-04-26 10:51 | HOSPPROG ---
Hospitalist Progress Note Assessment/Plan: Acute CVA - left frontal lobe per MRI. NIHSS 0. Echo pending. Appreciate Neurology recs, discussed with Dr. Ceja. -Cont daily ASA -Start statin, lipid panel pending -PT/OT, speech therapy ?UTI - mild pyuria on UA with neg nitrates. Cx pending -Cont empiric Ceftriaxone, await Cx data Urinary incontinence - new sx. Not typical sx of acute CVA. Query overflow incontinence. -check PVRs Alcohol abuse - BAL <10 on arrival. Pt downplays this. Recommend abstinence. -cont thiamine, mvi, folic acid Elevated BP - improved without tx, follow. Goal SBP <130 with CVA. Full code DVT PPLX - Lovenox Full code Subjective: Pt still having some word finding difficulty. No headache, vision changes or focal weakness. No fevers. No more urinary incontinence today, was able to void on the toilet. Objective: Vital Signs Temp Pulse Resp BP Pulse Ox 36.7 C 87 23 H 139/67 H 94 04/26/17 08:00 04/26/17 08:00 04/26/17 08:00 04/26/17 08:00 04/26/17 08:00 Laboratory Results 04/26/17 04:49 04/26/17 04:49 04/25/17 04/26/17 04/27/17 05:59 05:59 05:59 Intake Total 590 Output Total 300 250 Balance 290 -250 PT 13.4 SEC (12.0-15.0) 04/25/17 22:14 INR 1.03 (0.83-1.16) 04/25/17 22:14 - Physical Exam Constitutional: no apparent distress Eyes: PERRL Ears, Nose, Mouth, Throat: moist mucous membranes Cardiovascular: regular rate and rhythym Respiratory: no respiratory distress Gastrointestinal: normoactive bowel sounds, soft, non-tender abdomen Skin: warm Musculoskeletal: full muscle strength Neurologic: other (expressive aphasia) Psychiatric: interacting appropriately ICD10 Worksheet Patient Problems: Problems Problem Status Onset Hypertension Acute Urinary tract infection Acute Word finding difficulty Acute
[2017-04-26] MEDS ORDERED: ATORVASTATIN CALCIUM 40 MG TAB PO SCH (11:00)
[2017-04-26] MEDS ORDERED: ALBUTEROL 200 PUFFS/18 GM MDI IH PRN (11:08)
[2017-04-26] MEDS ORDERED: ZOLPIDEM TARTRATE 5 MG TAB PO PRN (11:09)
[2017-04-26] MEDS: THIAMINE HCL 100 MG TAB PO SCH (11:28)
[2017-04-26] MEDS: MULTIVITAMINS W-MINERALS 1 EACH TAB PO SCH (11:28)
[2017-04-26] MEDS: ASPIRIN 81 MG CHEWABLE TAB PO SCH (11:29)
[2017-04-26] MEDS: FOLIC ACID 1 MG TAB PO SCH (11:29)
[2017-04-26] MEDS: ENOXAPARIN 40 MG/0.4 ML SYR SC SCH (11:29)
[2017-04-26 12:17] LABS: CHOLESTEROL 188 mg/dL (140-220); CHOLESTEROL/HDL RATIO 2.21 RATIO (1.00-4.44); HIGH DENSITY LIPOPROTEIN 85 mg/dL (40-85); LDL/HDL RATIO 1.07 RATIO (1.00-3.22); LOW DENSITY LIPOPROTEIN 91 mg/dL (80-100); NON-HIGH DENSITY LIPOPROTEIN 103 mg/dL (90-129); TRIGLYCERIDE 64 mg/dL (35-135); VERY LOW DENSITY LIPOPROTEINS 12 mg/dL (8-25)
[2017-04-26] MEDS: PRAVASTATIN SODIUM 10 MG TAB PO SCH (12:38)
--- NOTE | 2017-04-26 12:40 | ECHO ---
[id number] + + [id number] : : [place] [address] : : [phone] + + Adult Echocardiographic Report + -------+ :Name: BEATRIS MAYOeb Date: 04/26/2017 07:49 AM : : Hospital Admission Number: [id number] Locati on: 361: :: 1935 Gender: Female Height: 65 in : :Age: 81 yrs Race: WH Weight: 95 lb : :Reason For Study: Ischemic stroke : : BSA: 1.4 meter s2 : + -------+ MMode/2D Measurements \T\ Calculations IVSd: 0.70 cm LVIDd: 3.4 cm FS: 49.8 % Ao root diam: LVPWd: 0.57 cm LVIDs: 1.7 cm EDV(Teich): 3.2 cm 46.5 ml LA dimension: ESV(Teich): 8.3 ml2.5 cm EF(Teich): 82.1 % LVLd ap4: 6.1 cm SV(MOD-sp4): EDV(MOD-sp4): 24.0 ml 33.0 ml LVLs ap4: 5.2 cm ESV(MOD-sp4): 9.0 ml EF(MOD-sp4): 72.7 % Normal Measurement Values: + + :LVIDd (3.5-5.7cm) IVSd (0.6-1.1cm) LVPWd (0.6-1.1cm) Aortic Root (2.0-3.7cm)Left Atrium (1.5-4.0cm): :LV Vol(d) (76-115ml) LV Vol(s) (29-48ml) Ejec Fraction (50-65%)PV Jamie (0.6- 1.2m/s) TV Jamie (0.4-1.0m/s) : :MV E Jamie (0.8-1.0m/s)MV A Jamie (0.3-1.0m/s)LVOT Jamie (0.7-1.2m/s) Asc Ao Jamie ( 0.9-1.8m/s) : + + Doppler Measurements \T\ Calculations MV E max jamie: 78.0 cm/sec Ao V2 max: 115.4 cm/sec TR max jamie: 282.3 cm/sec MV A max jamie: 96.7 cm/sec Ao max P.3 mmHg TR max P.9 mmHg MV E/A: 0.81 RAP systole: 5.0 mmHg RVSP(TR): 36.9 mmHg Left Ventricle The left ventricle is normal in size. There is mild concentric left ventricular hypertrophy. The left ventricle is hyperdynamic. Ejection Fraction = 70-75%. No regional wall motion abnormalities noted. Right Ventricle The right ventricle is normal in size and function. Atria The left atrium is moderately dilated. The right atrium is mildly dilated. Injection of contrast documented no interatrial shunt. Mitral Valve The mitral valve leaflets are redundant. There is no evidence of mitral valve prolapse. There is no mitral valve stenosis. There is mild to moderate mitral regurgitation. Tricuspid Valve Normal tricuspid valve. There is moderate tricuspid regurgitation. Right ventricular systolic pressure is 36mmHg. Aortic Valve The aortic valve is trileaflet. The aortic valve opens well. There is no aortic stenosis. Trace to mild aortic regurgitation. Pulmonic Valve The pulmonic valve is not well visualized. There is no pulmonic valvular regurgitation. Great Vessels The aortic root is normal size. Pericardium/Pleural There is no pericardial effusion. Conclusion A complete two-dimensional transthoracic echocardiogram was performed (2D, M-mode, Doppler and color flow Doppler). Technically difficult study - pt 90 lbs. 1. The left ventricle is normal in size with mild asymetric septal hypertrophy. The left ventricle is hyperdynamic with an Ejection Fraction = 70-75%. 2. There is biatrial enlargement. 3. The mitral valve leaflets are redundant but do not meet criteria for prolapse. There is mild to moderate mitral regurgitation. 4. The aortic valve is trileaflet. There is no aortic stenosis. Trace to mild aortic regurgitation. 5. Injection of contrast documented no interatrial shunt. 6. No old studies for comparison. Final Reading Physician: Gael Moore MD electronically signed on 04/26/2017 12:39 PM Ordering Physician: Lynne Ruiz Performed By: Concetta Hahn RDCS
--- NOTE | 2017-04-27 08:33 | NEUROPROG ---
Assessment: The patient is stable with NIH stroke scale of 0, but still sometimes has trouble with verbal expression and the overall fluency is reduced a bit. MRI confirmed a stroke in the left basal ganglia region most likely related to small vessel change and not likely an embolic phenomenon. With regard to discharge planning, the assessment yesterday from the therapist suggested she would probably benefit from inpatient rehab, so a consultation would be appropriate for that. If she exceeds the criteria for that then outpatient therapy could be arranged. I agree with statin therapy and continuing aspirin for secondary stroke prophylaxis. She was also told that she should cease all alcohol consumption given her vulnerability with stroke now to the loss of balance and cognitive changes. Today's total unit time was 35 minutes with the majority being [id number] discussion review of the imaging and current plan. Subjective: The patient tells me that she is feeling better. She said yesterday she noticed some trouble with her verbal expression with feels it is getting a little bit better. She is asking whether shaking go home soon. She denies feeling numbness or weakness. Yesterday I spoke to her about her MRI which showed a stroke. We spoke about that this morning. Objective: Vital Signs Temp Pulse Resp BP Pulse Ox 36.9 C 73 16 169/85 H 93 04/27/17 04:00 04/27/17 04:00 04/27/17 04:00 04/27/17 04:00 04/27/17 04:00 Laboratory Results 04/26/17 04:49 04/26/17 04:49 04/26/17 04/27/17 04/28/17 05:59 05:59 05:59 Intake Total 590 650 Output Total 300 1900 Balance 290 -1250 PT 13.4 SEC (12.0-15.0) 04/25/17 22:14 INR 1.03 (0.83-1.16) 04/25/17 22:14 She is awake and alert and attentive and fully oriented with generally fluent speech, although the verbal expression is a little slowed and does not have the normal speed of verbal interaction which I would consider typical for someone of her background and this was confirmed by her son yesterday. She seems to lack a little bit of insight which was also confirmed by the physical occupational therapist and speech therapist. Left pupil is 3 mm right pupil is 4 mm which is old. There is no facial weakness. She is not demonstrating definite aphasia currently. Motor exam reveals normal muscle bulk and tone although she probably is a little underweight and perhaps a little malnourished. I do not detect focal weakness. Sensation is preserved. No ataxic movements in the upper extremities. As noted, she had MRI yesterday which confirmed a small stroke in the left basal ganglia region without significant mass effect. Her LDL cholesterol is less than 100, but we have started her on statin therapy. Allergies/Adverse Reactions: streptomycin [Streptomycin] Allergy (Severe, Verified 04/25/17 22:00) Swelling, itching Kiwi fruit Allergy (Severe, Uncoded 04/25/17 22:00) Difficulty breathing
[2017-04-27] MEDS: THIAMINE HCL 100 MG TAB PO SCH (09:43)
[2017-04-27] MEDS: ASPIRIN 81 MG CHEWABLE TAB PO SCH (09:43)
[2017-04-27] MEDS: ENOXAPARIN 40 MG/0.4 ML SYR SC SCH (09:43)
[2017-04-27] MEDS: FOLIC ACID 1 MG TAB PO SCH (09:43)
[2017-04-27] MEDS: PRAVASTATIN SODIUM 10 MG TAB PO SCH (09:43)
[2017-04-27] MEDS: MULTIVITAMINS W-MINERALS 1 EACH TAB PO SCH (09:43)
--- NOTE | 2017-04-27 18:20 | HOSPPROG ---
Hospitalist Progress Note Assessment/Plan: Acute CVA - left frontal lobe per MRI. NIHSS 0. Echo reviewed, no cardioembolic source. Appreciate Neurology recs, discussed with Dr. Ceja. Thought 2/2 small vessel changes rather than embolic phenomenon -permissive hypertension, start to lower BP tomorrow, goal sbp <130 -Cont daily ASA, statin -cont telemetry monitoring, personally reviewed and interpreted, no e/o a fib -PT/OT, speech therapy ?UTI - UCx negative, stop atbx and monitor Urinary incontinence - new sx. Resolved. Query if this was related to acute CVA. Alcohol abuse - BAL <10 on arrival. Pt downplays this. Recommend abstinence. -cont thiamine, mvi, folic acid Elevated BP - improved without tx, follow. Goal SBP <130 with CVA. Full code DVT PPLX - Lovenox Full code Subjective: Pt feels better. Still with some expressive aphasia. Eating well. Reports a floater briefly in left eye Objective: Vital Signs Temp Pulse Resp BP Pulse Ox 36.9 C 67 26 H 162/84 H 93 04/27/17 16:13 04/27/17 16:13 04/27/17 16:13 04/27/17 16:13 04/27/17 16:13 04/26/17 04/27/17 04/28/17 05:59 05:59 05:59 Intake Total 300 Output Total 700 300 Balance -400 -300 PT 13.4 SEC (12.0-15.0) 04/25/17 22:14 INR 1.03 (0.83-1.16) 04/25/17 22:14 - Physical Exam Constitutional: no apparent distress Eyes: PERRL Ears, Nose, Mouth, Throat: moist mucous membranes Cardiovascular: regular rate and rhythym, no murmur, rub, or gallop Respiratory: no respiratory distress, clear to auscultation Gastrointestinal: normoactive bowel sounds, soft, non-tender abdomen Skin: warm Musculoskeletal: full muscle strength Neurologic: AAOx3, other (+expressive aphasia) Psychiatric: interacting appropriately ICD10 Worksheet Patient Problems: Problems Problem Status Onset Hypertension Acute 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
[2017-04-28 04:14] VITALS: RESP 18; O2SAT 93
[2017-04-28 07:15] VITALS: BP 154/75; PULSE 69; TEMP 98
[2017-04-28] MEDS: MULTIVITAMINS W-MINERALS 1 EACH TAB PO SCH (09:20)
[2017-04-28] MEDS: FOLIC ACID 1 MG TAB PO SCH (09:20)
[2017-04-28] MEDS: ASPIRIN 81 MG CHEWABLE TAB PO SCH (09:20)
[2017-04-28] MEDS: THIAMINE HCL 100 MG TAB PO SCH (09:20)
[2017-04-28] MEDS: ENOXAPARIN 40 MG/0.4 ML SYR SC SCH (09:20)
[2017-04-28] MEDS: PRAVASTATIN SODIUM 10 MG TAB PO SCH (09:20)
--- NOTE | 2017-04-28 10:11 | PDIAF ---
- Diagnosis Diagnosis: Ischemic stroke Code Status: Full Code - Medication Management Discharge Medications: Medications to Continue on Transfer Zolpidem Tartrate [Ambien 10 mg] 5 mg PO HS PRN 03/13/10 [Last Taken Unknown] Albuterol [Proventil Inhaler HFA (*)] 1 - 2 puffs IH Q4H PRN 04/26/17 [Last Taken Unknown] Aspirin [Aspirin 81mg (*)] 81 mg PO DAILY #90 tab.chew 04/28/17 [Last Taken Unknown] Folic Acid [Folic Acid 1 MG (*)] 1 mg PO DAILY tab 04/28/17 [Last Taken Unknown ] Multivitamins W-Minerals [Thera M Plus Tablet (*)] 1 each PO DAILY tab [Last Taken Unknown] Pravastatin Sodium [Pravachol] 10 mg PO DAILY #30 tab 04/28/17 [Last Taken Unknown] Thiamine HCl [Vitamin B-1] 100 mg PO DAILY tab 04/28/17 [Last Taken Unknown] amLODIPine BESYLATE [Norvasc 2.5 mg (*)] 2.5 mg PO DAILY #30 tab 04/28/17 [Last Taken Unknown] Discharge Medications: Refer to the Discharge Home Medication list for PRN reason. PICC Care - Routine: N/A - Orders Services needed: Registered Nurse, Physical Therapy, Occupational Therapy, Speech Language Pathologist Diet Recommendation: no restrictions on diet Diet Texture: Regular Texture Diet, Thin Liquids, Meds Whole w/Liquids, Meds Whole in Puree Additional: follow up with Dr. Sunday Ascencio, [facility] [employer], in 2-3 days for prolonged cardiac event monitor to search for A fib - Follow Up Care Current Providers and Referrals: RYAN FERNANDEZ [Primary Care Provider] - As per Instructions Sunday Ascencio MD [Medical Doctor] - 1-2 days
--- NOTE | 2017-04-28 11:16 | GDS ---
[f rep st] DISCHARGE SUMMARY DISCHARGE DIAGNOSES: 1. Acute ischemic stroke of the left frontal lobe with expressive aphasia. 2. Hypertension. 3. Alcohol abuse. CONSULTANTS: Dr. Ronald Ceja, neurology. IMAGING STUDIES/PROCEDURES: 1. Head CT April 25 showed stable moderate atrophy with no hemorrhage, mass effect, or definite ac shayna infarct and stable moderate microvascular ischemic disease. 2. Head and neck CT angiography April 25, 2017, showed no evidence of stenosis of the carotid or rober tebral arteries in the neck. Moderate stenosis of the mid internal carotid artery bilaterally with normal variation around the [place] of [place] and moderate stenosis proximal to the mid right posteri or cerebral artery. 3. Brain MRI, April 26, 2017, showed extensive periventricular and deep hemispheric white matter ad nge often seen with small vessel ischemic disease as well as a diffusion restriction and a large whi te matter lesion in the posterior medial left frontal lobe superior to the left basal ganglia, sugge sting a more acute white matter infarct as well as generalized cerebral atrophy. 4. Echocardiogram, April 26, 2017, showed normal left ventricular ejection fraction of 70% to 75% wi th biatrial enlargement. Mild to moderate mitral regurgitation. HISTORY: For details please see the history and physical dated April 26, 2017. In brief, the patien t is an 81-year-old female with a history of breast and cervical cancer as well as alcohol abuse, wh o presented to the emergency department with word finding difficulty and slurred speech. She was ad mitted to the hospital for further evaluation. HOSPITAL COURSE: The patient admitted to the medical-surgical unit. Imaging studies above confirme d an ischemic stroke. Neurology consult was obtained. This was thought more likely secondary to he r small vessel disease rather than embolic in origin. I personally reviewed her telemetry prior to discharge. There was no clear evidence of atrial fibrillation. However, given her mitral valve dis ease seen on echocardiogram and her history of alcohol abuse, I think it is prudent to set her up fo r prolonged outpatient cardiac monitoring to search for atrial fibrillation. She was treated with d aily aspirin, started on statin therapy. Initially the patient was very reluctant to start statin t herapy as her apparently did not tolerate statins. She ultimately agrees to low-dose of a m ilder potency statin and thus, pravastatin is chosen. Her LDL cholesterol is 91 and her HDL cholest norman is 85. Physical therapy, occupational therapy, and speech therapy evaluations were performed. The patient was deemed a candidate for inpatient rehab and will transfer there for ongoing rehab se [facility]. She was noted to have acute urinary incontinence on arrival. This is mostly resolved at this time. I suspect this may have been a sequela of her acute stroke. A urine culture was negative. She did receive 2 days of ceftriaxone. This was discontinued given negative urine culture. There was no e vidence of alcohol withdrawal. She will be discharged to continue on multivitamins, thiamine and fo late and alcohol cessation is recommended. She was initially allowed permissive hypertension. On the day of discharge, she was started on a low dose of amlodipine with a goal systolic blood pres sure less than 130 given her acute CVA. She will need ongoing blood pressure monitoring with up-tit ration of her blood pressure medications as indicated to achieve her systolic blood pressure goal. DISPOSITION: Patient is discharged to inpatient rehab in stable condition. DISCHARGE MEDICATIONS: Please see [employer] for complete updated medication list. New medications on discharge include: 1. Amlodipine 2.5 mg p.o. daily #30, no refills. 2. Aspirin 81 mg p.o. daily #90 no refills. 3. Folic acid. 4. Multivitamin. 5. Thiamine supplements. 6. Pravastatin 10 mg p.o. daily. FOLLOWUP: 1. Dr. Sunday Ascencio, [facility] community outreach coordinator, in 1-2 days for prolonged cardiac event mon itor. 2. Dr. Ángel Rosales, primary care. /[id number]/MODL
== END 2017-04-28 12:07 | DRG 66 ==
LOC: INTOOBSV 04-26 00:03 → F3N 04-26 01:04 → OBSVTOIN 04-26 15:38
PROVIDERS: ADMIT Internal Medicine; ATTEND Internal Medicine
DX: I63.542 Cerebral infarction due to unspecified occlusion or stenosis of left cerebellar artery (principal); R03.0 Elevated blood-pressure reading, without diagnosis of hypertension; R32 Unspecified urinary incontinence; I34.9 Nonrheumatic mitral valve disorder, unspecified; R29.700 NIHSS score 0; Z85.3 Personal history of malignant neoplasm of breast; Z79.82 Long term (current) use of aspirin; Z86.11 Personal history of tuberculosis; Z72.89 Other problems related to lifestyle; Z85.41 Personal history of malignant neoplasm of cervix uteri; Z91.81 History of falling
CPT/HCPCS: 92507-GN; 92523-GN; 92610-GN; 96374; 97116-GP; 97162-GP; 97166-GO; 97530-GO; 97530-GP; 97535-GO; G0480; G8978-GP-CJ; G8979-GP-CI; G8987-GO-CI; G8987-GO-CJ; G8988-GO-CI; G8989-GO-CI; G9162-GN-CK; G9163-GN-CI; J0696; J1650; Q9967

== ENCOUNTER 2017-04-28 12:30 | Inpatient (IN) | payer OTHER ==
[2017-04-28] MEDS ORDERED: NON-FORMULARY NEW DRUG (Zolpidem Tartrate [Ambien 10 Mg] 5 MG) PO PRN (13:58)
[2017-04-28] MEDS ORDERED: ALBUTEROL 60 PUFFS/8 GM MDI IH PRN (13:58)
[2017-04-28] MEDS ORDERED: SENNOSIDES 1 TAB PO PRN (14:00)
[2017-04-28] MEDS ORDERED: BISACODYL 10 MG SUPP PR PRN (14:00)
[2017-04-28] MEDS ORDERED: ALBUTEROL 200 PUFFS/18 GM MDI IH PRN (14:07)
--- NOTE | 2017-04-28 14:56 | GHP ---
[f rep st] HISTORY AND PHYSICAL POST ADMISSION PHYSICIAN EVALUATION AND REHABILITATION TREATMENT PLAN DATE OF ADMISSION: 04/28/2017 DATE OF EVALUATION: 04/28/2017 TIME OF EVALUATION: 1315 IMPAIRMENT GROUP: 1.4 DATE OF ONSET: 04/26/2017 REFERRING PHYSICIAN: Dr. Ruiz REHABILITATION DIAGNOSIS: Cerebrovascular accident with aphasia. ETIOLOGIC DIAGNOSIS: No paresis. HISTORY OF PRESENT ILLNESS: The patient came [facility] on with slurred speech and word-finding difficulties. She was also noticed noted to have urinary incontinence and an elevated blood pressure. She was initially treated for a urinary tract infection with a somewhat suggestive urine dip; however, culture ruled out UTI, and antibiotics were stopped after 2 days. A brain MRI was positive for acute infarct from the left frontal lobe to the left basal ganglia. Echocardiogram showed no cardioembolic source, mild asymmetric septal hypertrophy, hyperdynamic left ventricle with ejection fraction of 70% to 75%, biatrial enlargement, [id number] mitral regurgitation and otherwise no valvular disease and no interatrial shunt. Neck and cerebral angiography revealed moderate stenosis of the mid internal carotid artery bilaterally and moderate stenosis proximal to the mid right posterior cerebral artery. She was begun on aspirin and pravastatin. Brain MRI additionally showed extensive periventricular and deep hemispheric white matter change consistent with small vessel ischemic disease. Urinary incontinence mostly resolved during her hospital stay. Low-dose amlodipine was begun on the day of hospital discharge to begin to achieve better blood pressure control. STUDIES AND LABS IN THE HOSPITAL: CBC was overall within normal limits, though on 04/26, she developed slight thrombocytopenia with a platelet count of 149. Coagulation studies were normal. Chemistry revealed normal renal function and electrolytes, normal liver function tests, normal creatine kinase and troponin, normal BNP. Lipase was mildly elevated at 358. Lipid panel revealed an LDL of 91 and an HDL of 85. Ethyl alcohol level was non detectable in the serum. PRECAUTIONS: She is a fall risk. ACTIVE COMORBIDITIES: There are no active tier 1, tier 2, or tier 3 comorbidities. PAST MEDICAL HISTORY: 1. Breast cancer in the right breast with recurrence many years later in the left breast. 2. Cervical cancer. 3. Basal cell carcinoma on the right ear. 4. Tuberculosis. 5. Alcohol abuse/dependence with an emergency department visit last January in which her blood alcohol level was 253 mg/dL. SURGICAL HISTORY: 1. Hysterectomy. 2. Mastectomy and implant on the right. 3. Lumpectomy on the left breast. 4. Partial lobectomy of the lung. 5. Cataract surgery. ALLERGIES: Listed to streptomycin and kiwi fruit. PRE-HOSPITAL MEDICATIONS: Only Ambien. ADMISSION MEDICATIONS: 1. Albuterol 1-2 puffs q.4 hours p.r.n. 2. Amlodipine 2.5 mg p.o. daily. 3. Aspirin 81 mg p.o. daily. 4. Folate 1 mg p.o. daily. 5. Multivitamin with minerals 1 p.o. daily. 6. Pravastatin 10 mg p.o. daily. 7. Thiamine 100 mg p.o. daily. 8. Zolpidem 5 mg p.o. at bedtime. FAMILY HISTORY: Noncontributory. PSYCHOSOCIAL HISTORY: She is . She lives with her . There is a local son. She and her live in a trilevel house with steps to enter and steps to get to the bedroom. She is a nonsmoker. She has regular alcohol use of several drinks per day. 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 REVIEW OF SYSTEMS: She reports approximately a 10-pound weight loss over several months. She has a good appetite. She denies nausea or constipation, diarrhea or vomiting. She denies fevers or chills, cough or dyspnea, chest pain or palpitations. She denies joint pain or joint swelling. She denies skin rash or skin breakdown. She denies dysuria or urinary frequency. She reports that she has a floater in the right eye. She has never had floaters before. She denies focal weakness. She denies difficulty swallowing. She denies numbness or tingling of the extremities. She denies headache. She is aware of word-finding difficulty and difficulty speaking. Memory loss has been noted by family for approximately the past year. Otherwise a 10 point review of systems is negative. PHYSICAL EXAM: VITAL SIGNS: Blood pressure is 157/89, heart rate is 67, respiratory rate is 18, oxygen saturation is 97% on room air, temperature is 36.5 degrees centigrade. Her weight is 43.1 kg for a body mass index of 15.8. GENERAL: This is an underweight woman with significant peripheral muscle wasting, sitting in the chair, alert, cooperative and in no acute distress. HEENT: Extraocular movements are intact. Right pupil has normal reactivity to light. Left pupil has reduced reactivity to light. There is no afferent pupillary defect. Mucous membranes are moist. Dentition is in good condition. She has an uncrowded airway, Mallampati class 1. NECK: Supple with no thyromegaly. HEART: There is regular rate and rhythm with no murmurs, rubs, or gallops. Heart sounds are somewhat distant. LUNGS: Clear to auscultation bilaterally. ABDOMEN: Soft, nontender, nondistended with normoactive bowel sounds and no hepatosplenomegaly. EXTREMITIES: There is no cyanosis, clubbing , or edema. Radial pulses are 2+ bilaterally. Dorsalis pedis pulse is 2+ on the right, and pedal pulses are not palpable on the left. Capillary refill is normal. NEUROLOGIC: She is alert and oriented x3. Cranial nerves 2-12 are grossly intact. She appears to have a right visual field cut. Motor strength overall is 5/5 except bilaterally in the triceps approximately 4/5. Sensation is intact to light touch. Deep tendon reflexes are 2+ bilaterally at the biceps and patella, and are absent at the Achilles tendons. Plantar reflex is downgoing on the left and upgoing on the right. Sensation is intact to light touch. She is able to arise from seated independently and to take a few steps. Her gait is somewhat unsteady but there is no sarahi loss of balance. CURRENT LEVEL OF FUNCTION: Per the preadmission screen. Regarding diet, feeding, and swallowing she was on a regular diet. Grooming was done with contact guard assist, bathing with minimal assist. For dressing, she required standby assist for upper body and lower body with voice cuing for safety with adjustment of clothing. Regarding bladder, she was noted to be incontinent. Regarding bowel, she was continent. Bed mobility and transfers were accomplished with contact guard assist. She used a front-wheeled walker. Balance required contact to minimal assist. Endurance was fair to good. She was able to ambulate 100 feet with a front-wheeled walker and minimal assistance. Regarding communication, she was noted to have mild to moderate aphasia and mild dysarthria. Regarding cognition, she was noted to have mild cognitive impairment in attention, memory, problem solving and reasoning. She was considered to be a fall risk. IMPRESSION: This patient is an 81-year-old woman who had pre-existing small vessel ischemic disease of the brain who suffered a cerebrovascular accident involving the left basal ganglia. She has expressive aphasia which is apparent with word-finding difficulties. Unclear to what extent she has receptive aphasia but she is able to follow commands normally and seems to understand conversation. She has debility after several days in the hospital and she has an unsteady gait. She has elevated blood pressure and was just begun on amlodipine at a low dose. She was additionally begun on aspirin and pravastatin for secondary prevention of stroke. She has a history of alcohol abuse and dependence which may also be contributing to cognitive dysfunction along with the small vessel ischemic disease. She is appropriate for inpatient rehabilitation where she will benefit from physical and occupational therapy to optimize her mobility and activities of daily living, and speech therapy for communication and for assessment of cognition. She will need nursing care regarding bowel and bladder, in particular with urinary incontinence, skin integrity, medication administration and fall risk. She will benefit from the care of a physician regarding hypertension, possible peripheral vascular disease , and further assessment of urinary incontinence. Her goal is to complete her therapy stay and return home with supportive services. For a safe discharge, she will need to achieve independence with grooming, bathing, dressing and bed mobility. It is expected she will achieve modified independence for transfers and ambulation with the least restrictive device, and improvement in memory, attention and reasoning. She will have therapy with Physical Therapy, Occupational Therapy, and Speech and Language Pathology for 60 minutes per day for each discipline on 5-7 days of the week. Her expected duration of stay is 5-7 days. It is anticipated that upon discharge, she will continue to benefit from outpatient therapy including occupational therapy, speech and language pathology and physical therapy. ASSESSMENT AND PLAN: 1. Cerebrovascular accident on 04/26/17 in the left basal ganglia resulting in aphasia. Assessment and treatment per Speech and Language Pathology. 2. Gait instability and need for assistance with activities of daily living. Physical and occupational therapies to optimize mobility and activities of daily living. 3. Possible cognitive impairment with memory loss noted over approximately a year prior to the stroke. She will be assessed and treated per Speech and Language Pathology. 4. Hypertension. Amlodipine has been begun. She will have serial monitoring of her blood pressure and addition or adjustment of antihypertensive medications. 5. History of alcohol abuse and dependence. She was advised to reduce her alcohol use or eliminate it per Neurology and the hospital physicians. She is treated with folic acid and thiamine. She has had no signs or symptoms of alcohol withdrawal. 6. Weight loss. I do not see a recent TSH, so I will order a TSH for the morning. Additionally, as she has had weight loss, nutritional status will be further evaluated with checking vitamin B12, and vitamin D will be checked as well. Consult media reconciliation specialist. 7. Atrial enlargement on echocardiogram. She is to have a monitor placed for evaluation regarding possible occult atrial fibrillation. Unclear whether this will take place during her rehabilitation stay or after discharge. /[id number]/MODL MTDD
[2017-04-28] MEDS: ZOLPIDEM TARTRATE 5 MG TAB PO PRN (20:21)
[2017-04-29] MEDS: PRAVASTATIN SODIUM 10 MG TAB PO SCH (08:29)
[2017-04-29] MEDS: ASPIRIN 81 MG CHEWABLE TAB PO SCH (08:30)
[2017-04-29] MEDS: THIAMINE HCL 100 MG TAB PO SCH (08:30)
[2017-04-29] MEDS: FOLIC ACID 1 MG TAB PO SCH (08:30)
[2017-04-29] MEDS: MULTIVITAMINS W-MINERALS 1 EACH TAB PO SCH (08:30)
[2017-04-29 08:59] LABS: VITAMIN D 25-HYDROXY TOTAL 22.3 ng/mL (30-100)
--- NOTE | 2017-04-29 12:12 | SOAPPROG ---
SOAP Progress Note Assessment/Plan: Assessment: * Cerebrovascular accident on 04/26/17 in the left basal ganglia resulting in aphasia. Assessment and treatment per Speech and Language Pathology. * Gait instability and need for assistance with activities of daily living. Lopez Balance Inventory 30/56 on 04/29/17, indicating elevated fall risk. Continue Physical and occupational therapies to optimize mobility and activities of daily living. * Possible cognitive impairment with memory loss noted over approximately a year prior to the stroke. She will be assessed and treated per Speech and Language Pathology. * Expressive aphasia to be assessed and treated by Speech and Language Pathology. * Hypertension. Continue amlodipine. Continue to monitor. * History of alcohol abuse and dependence. She was advised to reduce her alcohol use or eliminate it per Neurology and the hospital physicians. She is treated with folic acid and thiamine. She has had no signs or symptoms of alcohol withdrawal. * Weight loss. TSH was normal on labs 04/29/2017. Appreciate assistance of water quality tester. * Vitamin-D deficiency. Initiate supplement * Atrial enlargement on echocardiogram. She is to have a monitor placed for evaluation regarding possible occult atrial fibrillation. Unclear whether this will take place during her rehabilitation stay or after discharge. 04/29/17 16:07 Subjective: No complaints. Slept well. Reports good appetite. Denies fevers, chills, cough, dyspnea. Objective: Vital Signs Temp Pulse Resp BP Pulse Ox 36.8 C 73 16 132/84 H 94 04/29/17 07:33 04/29/17 07:33 04/29/17 07:33 04/29/17 08:29 04/29/17 07:33 04/28/17 04/29/17 04/30/17 05:59 05:59 05:59 Intake Total 290 240 Output Total 600 Balance -310 240 Physical Exam - Physical Exam General Appearance: alert, no apparent distress, cachetic Respiratory: normal breath sounds, No crackles, No rhonchi, No wheezing Cardiac/Chest: regular rate, rhythm, No diastolic murmur, No systolic murmur Skin: normal color, warm/dry Neuro/Psych: no motor/sensory deficits, alert, normal mood/affect, oriented x 3 , speech abnormalities (W), other (Word-finding difficulty) ICD10 Worksheet Patient Problems: Problems Problem Status Onset Hypertension Acute 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
--- NOTE | 2017-04-29 12:13 | PDOREHIP ---
Admission [facility] - Admission - 3 Day Assessment Period Admission Date/Day 1: 04/28/17 Day 2: 04/29/17 Day 3: 04/30/17 - Active Diagnoses Comorbidities and Co-existing Conditions at Admission: 38623. None of the Above - Skin Conditions Unhealed Pressure Ulcer (1 or more/Stage 1 or >)-Admission: 0. No
[2017-04-29] MEDS: CHOLECALCIFEROL VIT D3 2,000 UNITS TAB/CAP PO SCH (14:31)
[2017-04-29] MEDS: ZOLPIDEM TARTRATE 5 MG TAB PO PRN (20:43)
[2017-04-30] MEDS: MULTIVITAMINS W-MINERALS 1 EACH TAB PO SCH (08:27)
[2017-04-30] MEDS: PRAVASTATIN SODIUM 10 MG TAB PO SCH (08:28)
[2017-04-30] MEDS: THIAMINE HCL 100 MG TAB PO SCH (08:28)
[2017-04-30] MEDS: ASPIRIN 81 MG CHEWABLE TAB PO SCH (08:28)
[2017-04-30] MEDS: FOLIC ACID 1 MG TAB PO SCH (08:28)
[2017-04-30] MEDS: CHOLECALCIFEROL VIT D3 2,000 UNITS TAB/CAP PO SCH (08:28)
--- NOTE | 2017-04-30 10:17 | SOAPPROG ---
SOAP Progress Note Assessment/Plan: Assessment: 81 yo F s/p cerebrovascular accident on 04/26/17 in the left basal ganglia resulting in aphasia, with balance impairment, cognitive impairment and h/o EtOH : * Gait instability and need for assistance with activities of daily living. Initial FIM 75 as of 04/30/17. Lopez Balance Inventory 30/56 on 04/29/17, indicating elevated fall risk. Walked >300' CGA; reduced R awareness and impaired path-finding.. Disorganized re ADLs and needs cuing for structure. Incontinent urine overnight 04/29. Continue Physical and occupational therapies to optimize mobility and activities of daily living. * Memory loss noted over approximately a year prior to the stroke. Speech therapy notes decreased memory problem solving and executive function. * Expressive aphasia. Word-finding difficulty, paraphasia, neologisms and decreased awareness of deficits. Also has receptive aphasia. Continue treatments per Speech and Language Pathology. * Hypertension. BP above target for secondary prevention. Increase amlodipine from 2.5 mg QD to 5 mg QD on 04/30/17. Continue to monitor. * Urinary incontinence. UTI ruled out in the acute care hospital. Initiate scheduled toileting and rehabilitation bladder program, starting 04/30/2017. * History of alcohol abuse and dependence. She was advised to reduce her alcohol use or eliminate it per Neurology and the hospital physicians. She is treated with folic acid and thiamine. She has had no signs or symptoms of alcohol withdrawal. * Weight loss. TSH was normal on labs 04/29/2017. Appreciate assistance of emblem cutter. Weight Q week. * Vitamin-D deficiency. Initiate supplement * Atrial enlargement on echocardiogram. She is to have a monitor placed for evaluation regarding possible occult atrial fibrillation. Unclear whether this will take place during her rehabilitation stay or after discharge. Attended staffing, 15 minutes. Discussed with case management, nursing, dietitian, pharmacist, PT, OT, SEWING MACHINE TESTER. Lives with with multiple steps in the home. Unclear how much assistance can provide. Will likely need continued supervision in the home. Tentative discharge date of 05/12/2017 set. Family conference 05/05/17-05/07/17. Follow-up after discharge with PCP Louis Rosales and college service officer Sunday Ascencio. 04/30/17 11:53 Subjective: No complaints this morning. Asks about reason for pravastatin and for blood pressure control. Reports poor sleep last night; was unable to attain sleep until approximately 1 in the morning and woke up at 6. She had habitually uses Ambien for sleep and it usually works. Objective: Vital Signs Temp Pulse Resp BP Pulse Ox 36.8 C 83 16 138/59 H 95 04/30/17 06:57 04/30/17 09:29 04/30/17 06:57 04/30/17 09:48 04/29/17 18:57 04/29/17 04/30/17 05/01/17 05:59 05:59 05:59 Intake Total 290 980 240 Output Total 600 1550 Balance -310 -570 240 - Time Spent With Patient Time Spent With Patient: Greater than 35 minutes floor time today, including more than 50% of time in coordination of care during staffing meeting, and counseling patient. Physical Exam - Physical Exam General Appearance: alert, no apparent distress, cachetic Respiratory: normal breath sounds, No crackles, No rhonchi, No wheezing Cardiac/Chest: regular rate, rhythm, No diastolic murmur, No systolic murmur Skin: normal color, warm/dry Neuro/Psych: alert, normal mood/affect, oriented x 3, abnormal gait, speech abnormalities (Word-finding difficulty) ICD10 Worksheet Patient Problems: Problems Problem Status Onset Hypertension Acute 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
[2017-04-30] MEDS: ZOLPIDEM TARTRATE 5 MG TAB PO PRN (21:23)
[2017-05-01] MEDS: ASPIRIN 81 MG CHEWABLE TAB PO SCH (08:51)
[2017-05-01] MEDS: THIAMINE HCL 100 MG TAB PO SCH (08:52)
[2017-05-01] MEDS: CHOLECALCIFEROL VIT D3 2,000 UNITS TAB/CAP PO SCH (08:52)
[2017-05-01] MEDS: FOLIC ACID 1 MG TAB PO SCH (08:52)
[2017-05-01] MEDS: MULTIVITAMINS W-MINERALS 1 EACH TAB PO SCH (08:52)
[2017-05-01] MEDS: PRAVASTATIN SODIUM 10 MG TAB PO SCH (08:53)
--- NOTE | 2017-05-01 10:32 | SOAPPROG ---
SOAP Progress Note Assessment/Plan: Assessment: 81 yo F s/p cerebrovascular accident on 04/26/17 in the left basal ganglia resulting in aphasia, with balance impairment, cognitive impairment and h/o EtOH : * Gait instability and need for assistance with activities of daily living. Initial FIM 75 as of 04/30/17. Lopez Balance Inventory 30/56 on 04/29/17, indicating elevated fall risk. Walked >300' CGA; reduced R awareness and impaired path-finding.. Disorganized re ADLs and needs cuing for structure. Incontinent urine overnight 04/29. Continue Physical and occupational therapies to optimize mobility and activities of daily living. * Memory loss noted over approximately a year prior to the stroke. Speech therapy notes decreased memory problem solving and executive function. * Expressive aphasia. Word-finding difficulty, paraphasia, neologisms and decreased awareness of deficits. Also has receptive aphasia. Continue treatments per Speech and Language Pathology. * Hypertension. Blood pressure this morning 137/76. Increase amlodipine 5 mg QD on\ Continue to monitor. * Urinary incontinence. UTI ruled out in the acute care hospital. Initiate scheduled toileting and rehabilitation bladder program, starting 04/30/2017. * History of alcohol abuse and dependence. She was advised to reduce her alcohol use or eliminate it per Neurology and the hospital physicians. She is treated with folic acid and thiamine. She has had no signs or symptoms of alcohol withdrawal. * Weight loss. TSH was normal on labs 04/29/2017. Appreciate assistance of tannery gummer. Weight Q week. * Vitamin-D deficiency. Initiate supplement * Atrial enlargement on echocardiogram. She is to have a monitor placed for evaluation regarding possible occult atrial fibrillation. Unclear whether this will take place during her rehabilitation stay or after discharge. Plan: 05/01/17 10:32 Subjective: She has no new complaints this morning. She denies right upper or right lower extremity weakness. No new problems reported by nursing staff she reports good pain control. She denies headache, visual disturbance or dizziness. Objective: Vital Signs Temp Pulse Resp BP Pulse Ox 36.6 C 76 16 137/76 H 96 05/01/17 07:40 05/01/17 07:40 05/01/17 07:40 05/01/17 08:52 05/01/17 07:40 04/30/17 05/01/17 05/02/17 05:59 05:59 05:59 Intake Total 980 1040 478 Output Total 3650 1526 Balance -570 -160 478 Physical Exam - Physical Exam General Appearance: WD/WN, alert, no apparent distress, thin EENT: PERRL/EOMI Respiratory: chest non-tender, lungs clear, normal breath sounds Cardiac/Chest: No edema Abdomen: non-tender, soft Skin: normal color, warm/dry Extremities: No calf tenderness, No swelling Neuro/Psych: alert, aphasia, cognition abnormalities, speech abnormalities ( Expressive aphasia noted. Responded appropriately to questions. 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
[2017-05-02] MEDS: MULTIVITAMINS W-MINERALS 1 EACH TAB PO SCH (08:47)
[2017-05-02] MEDS: CHOLECALCIFEROL VIT D3 2,000 UNITS TAB/CAP PO SCH (08:48)
[2017-05-02] MEDS: THIAMINE HCL 100 MG TAB PO SCH (08:48)
[2017-05-02] MEDS: FOLIC ACID 1 MG TAB PO SCH (08:49)
[2017-05-02] MEDS: PRAVASTATIN SODIUM 10 MG TAB PO SCH (08:50)
[2017-05-02] MEDS: ASPIRIN 81 MG CHEWABLE TAB PO SCH (08:50)
--- NOTE | 2017-05-02 10:48 | SOAPPROG ---
SOAP Progress Note Assessment/Plan: Assessment: 81 yo F s/p cerebrovascular accident on 04/26/17 in the left basal ganglia resulting in aphasia, with balance impairment, cognitive impairment and h/o EtOH : * Gait instability and need for assistance with activities of daily living. Initial FIM 75 as of 04/30/17. Lopez Balance Inventory 30/56 on 04/29/17, indicating elevated fall risk. Walked >300' CGA; reduced R awareness and impaired path-finding.. Disorganized re ADLs and needs cuing for structure. Incontinent urine overnight 04/29. Continue Physical and occupational therapies to optimize mobility and activities of daily living. * Memory loss noted over approximately a year prior to the stroke. Speech therapy notes decreased memory problem solving and executive function. * Expressive aphasia. Word-finding difficulty, paraphasia, neologisms and decreased awareness of deficits. Also has receptive aphasia. Continue treatments per Speech and Language Pathology. * Insomnia-patient is requesting Ambien 1/2 tablet, however patient may do better with low-dose trazodone. * Hypertension. THIS MORNING'S BLOOD PRESSURE 123/73 all * Urinary incontinence. UTI ruled out in the acute care hospital. Initiate scheduled toileting and rehabilitation bladder program, starting 04/30/2017. * History of alcohol abuse and dependence. She was advised to reduce her alcohol use or eliminate it per Neurology and the hospital physicians. She is treated with folic acid and thiamine. She has had no signs or symptoms of alcohol withdrawal. * Weight loss. TSH was normal on labs 04/29/2017. Appreciate assistance of flight engineer performance qualified. Weight Q week. * Vitamin-D deficiency. Initiate supplement * Atrial enlargement on echocardiogram. She is to have a monitor placed for evaluation regarding possible occult atrial fibrillation. Unclear whether this will take place during her rehabilitation stay or after discharge. Plan: 05/01/17 10:32 05/02/17 10:45 Subjective: All she reports poor sleep last night and is requesting 1/2 Ambien which she was taking prior to admission. Objective: Vital Signs Temp Pulse Resp BP Pulse Ox 36.9 C 71 15 123/73 H 93 05/02/17 07:10 05/02/17 07:10 05/02/17 07:10 05/02/17 08:50 05/02/17 07:10 05/01/17 05/02/17 05/03/17 05:59 05:59 05:59 Intake Total 1040 1378 120 Output Total 1200 1150 Balance -160 228 120 Physical Exam - Physical Exam General Appearance: WD/WN, alert, no apparent distress Respiratory: chest non-tender, lungs clear Abdomen: normal bowel sounds, non-tender, soft Skin: normal color, warm/dry, No cyanosis Neuro/Psych: alert, cognition abnormalities, speech abnormalities, other (Upper and lower extremity motor exam shows good antigravity and functional strength all major muscle groups both upper and lower extremities.), No normal mood/ affect (Blunt affect) ICD10 Worksheet Patient Problems: Problems Problem Status Onset Hypertension Acute 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
[2017-05-02] MEDS ORDERED: traZODone 50 MG TAB PO PRN (21:00)
[2017-05-02] MEDS ORDERED: traZODone 50 MG TAB PO SCH (21:00)
[2017-05-03] MEDS: PRAVASTATIN SODIUM 10 MG TAB PO SCH (08:26)
[2017-05-03] MEDS: CHOLECALCIFEROL VIT D3 2,000 UNITS TAB/CAP PO SCH (08:26)
[2017-05-03] MEDS: THIAMINE HCL 100 MG TAB PO SCH (08:26)
[2017-05-03] MEDS: FOLIC ACID 1 MG TAB PO SCH (08:26)
[2017-05-03] MEDS: ASPIRIN 81 MG CHEWABLE TAB PO SCH (08:26)
[2017-05-03] MEDS: MULTIVITAMINS W-MINERALS 1 EACH TAB PO SCH (08:26)
--- NOTE | 2017-05-03 09:49 | SOAPPROG ---
SOAP Progress Note Assessment/Plan: Assessment: 81 yo F s/p cerebrovascular accident on 04/26/17 in the left basal ganglia resulting in aphasia, with balance impairment, cognitive impairment and h/o EtOH : * Gait instability and need for assistance with activities of daily living. Initial FIM 75 as of 04/30/17. Lopez Balance Inventory 30/56 on 04/29/17, indicating elevated fall risk. Per PT 05/03/17 Lopez has improved considerably but dynamic balance testing is still abnormal. Walked >300' CGA; reduced R awareness and impaired path-finding.. Disorganized re ADLs and needs cuing for structure. Incontinent urine overnight 04/29. Continue Physical and occupational therapies to optimize mobility and activities of daily living. * Acute worsening of balance and gait 05/03/17. Not orthostatic. May be adverse effect of trazodone last night. Better later in the day. D/C'd trazodone, ordered melatonin. * Memory loss noted over approximately a year prior to the stroke. Speech therapy notes decreased memory problem solving and executive function. * Expressive aphasia. Word-finding difficulty, paraphasia, neologisms and decreased awareness of deficits. Also has receptive aphasia. Continue treatments per Speech and Language Pathology. * Hypertension. BP above target for secondary prevention. Increase amlodipine from 2.5 mg QD to 5 mg QD on 04/30/17. Continue to monitor. * Urinary incontinence. UTI ruled out in the acute care hospital. Initiate scheduled toileting and rehabilitation bladder program, starting 04/30/2017. * History of alcohol abuse and dependence. She was advised to reduce her alcohol use or eliminate it per Neurology and the hospital physicians. She is treated with folic acid and thiamine. She has had no signs or symptoms of alcohol withdrawal. * Weight loss. TSH was normal on labs 04/29/2017. Appreciate assistance of bag filler. Loss of 5 kg form 04/29/17 to 05/02/17? Measurement error? Change weights to QD. * Vitamin-D deficiency. Initiate supplement * Atrial enlargement on echocardiogram. She is to have a monitor placed for evaluation regarding possible occult atrial fibrillation. Unclear whether this will take place during her rehabilitation stay or after discharge. Lives with with multiple steps in the home. Unclear how much assistance can provide. Will likely need continued supervision in the home. Tentative discharge date of 05/12/2017 set. Family conference 05/05/17-05/07. Follow-up after discharge with PCP Louis Rosales and artist and repertoire manager Sunday Ascencio. 05/03/17 21:16 Subjective: C/O AHN, band-like around forehead, and ringing in ears. Staff reports acutely worse balance this morning; transported by wheelchair to/from [facility]. Denies f/c, cough/dyspea, dysuria or frequency. Had urinary incontinence overnight. Had trazadone 25 mg last night, first time she's used this med. Objective: Vital Signs Temp Pulse Resp BP Pulse Ox 36.3 C 71 16 147/72 H 95 05/03/17 05:50 05/03/17 05:50 05/03/17 05:50 05/03/17 08:26 05/03/17 05:50 05/02/17 05/03/17 05/04/17 05:59 05:59 05:59 Intake Total 1378 580 380 Output Total 1150 1800 Balance 228 -1220 380 Physical Exam - Physical Exam General Appearance: alert, no apparent distress, cachetic Respiratory: normal breath sounds, No crackles, No rhonchi, No wheezing Cardiac/Chest: regular rate, rhythm, No edema, No diastolic murmur, No systolic murmur Skin: normal color, warm/dry Neuro/Psych: alert, normal mood/affect, other (No pronator drift), No abnormal cerebellar tests, No motor weakness ICD10 Worksheet Patient Problems: Problems Problem Status Onset Hypertension Acute 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
[2017-05-03] MEDS: MELATONIN 3 MG TAB PO SCH (21:24)
[2017-05-04] MEDS: MULTIVITAMINS W-MINERALS 1 EACH TAB PO SCH (08:56)
[2017-05-04] MEDS: ASPIRIN 81 MG CHEWABLE TAB PO SCH (08:57)
[2017-05-04] MEDS: THIAMINE HCL 100 MG TAB PO SCH (08:57)
[2017-05-04] MEDS: FOLIC ACID 1 MG TAB PO SCH (08:57)
[2017-05-04] MEDS: CHOLECALCIFEROL VIT D3 2,000 UNITS TAB/CAP PO SCH (08:57)
[2017-05-04] MEDS: PRAVASTATIN SODIUM 10 MG TAB PO SCH (08:58)
--- NOTE | 2017-05-04 15:34 | SOAPPROG ---
SOAP Progress Note Assessment/Plan: Assessment: 81 yo F s/p cerebrovascular accident on 04/26/17 in the left basal ganglia resulting in aphasia, with balance impairment, cognitive impairment and h/o EtOH : * Gait instability and need for assistance with activities of daily living. Initial FIM 75 as of 04/30/17. Lopez Balance Inventory 30/56 on 04/29/17, indicating elevated fall risk. Per PT 05/03/17 Lopez has improved considerably but dynamic balance testing is still abnormal. Walked >300' CGA; reduced R awareness and impaired path-finding.. Disorganized re ADLs and needs cuing for structure. Incontinent urine overnight 04/29. Continue Physical and occupational therapies to optimize mobility and activities of daily living. * Acute worsening of balance and gait 05/03/17. Not orthostatic. May be adverse effect of trazodone last night. Better later in the day. D/C'd trazodone, ordered melatonin. Resolved 05/04/17. * Memory loss noted over approximately a year prior to the stroke. Speech therapy notes decreased memory problem solving and executive function. * Expressive aphasia. Word-finding difficulty, paraphasia, neologisms and decreased awareness of deficits. Also has receptive aphasia. Continue treatments per Speech and Language Pathology. * Hypertension. BP above target for secondary prevention. Increase amlodipine from 2.5 mg QD to 5 mg QD on 04/30/17. Continue to monitor. * Urinary incontinence. UTI ruled out in the acute care hospital. Initiate scheduled toileting and rehabilitation bladder program, starting 04/30/2017. * History of alcohol abuse and dependence. She was advised to reduce her alcohol use or eliminate it per Neurology and the hospital physicians. She is treated with folic acid and thiamine. She has had no signs or symptoms of alcohol withdrawal. * Weight loss. TSH was normal on labs 04/29/2017. Appreciate assistance of research laboratory specialist. Loss of 5 kg form 04/29/17 to 05/02/17? Measurement error? Change weights to QD. * Vitamin-D deficiency. Initiate supplement * Atrial enlargement on echocardiogram. She is to have a monitor placed for evaluation regarding possible occult atrial fibrillation. Unclear whether this will take place during her rehabilitation stay or after discharge. Lives with with multiple steps in the home. Unclear how much assistance can provide. Will likely need continued supervision in the home. Tentative discharge date of 05/12/2017 set. Family conference 05/05/17-05/07. Follow-up after discharge with PCP Louis Rosales and claim processor Sunday Ascencio. 05/04/17 15:31 Subjective: No complaints. Slept well last night. Denies fevers, chills, cough, dyspnea. Not in pain. Objective: Vital Signs Temp Pulse Resp BP Pulse Ox 36.7 C 65 16 106/73 96 05/04/17 07:56 05/04/17 07:56 05/04/17 07:56 05/04/17 08:58 05/04/17 07:56 05/03/17 05/04/17 05/05/17 05:59 05:59 05:59 Intake Total 580 1100 540 Output Total 1800 500 600 Balance -1220 600 -60 Physical Exam - Physical Exam General Appearance: alert, no apparent distress, cachetic Respiratory: No respiratory distress, No accessory muscle use Skin: normal color, warm/dry Neuro/Psych: alert, normal mood/affect, other (Observed in physical therapy, side stepping to the left and to the right supported by therapist, walking backwards contact guard assist with minor LOB corrected by physical therapist.) ICD10 Worksheet Patient Problems: Problems Problem Status Onset Hypertension Acute 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
[2017-05-04] MEDS: MELATONIN 3 MG TAB PO SCH (20:43)
[2017-05-05] MEDS: CHOLECALCIFEROL VIT D3 2,000 UNITS TAB/CAP PO SCH (08:37)
[2017-05-05] MEDS: ASPIRIN 81 MG CHEWABLE TAB PO SCH (08:37)
[2017-05-05] MEDS: MULTIVITAMINS W-MINERALS 1 EACH TAB PO SCH (08:37)
[2017-05-05] MEDS: FOLIC ACID 1 MG TAB PO SCH (08:37)
[2017-05-05] MEDS: THIAMINE HCL 100 MG TAB PO SCH (08:37)
[2017-05-05] MEDS: PRAVASTATIN SODIUM 10 MG TAB PO SCH (08:37)
[2017-05-05] MEDS: MELATONIN 3 MG TAB PO SCH (21:04)
[2017-05-06] MEDS: MULTIVITAMINS W-MINERALS 1 EACH TAB PO SCH (09:40)
[2017-05-06] MEDS: FOLIC ACID 1 MG TAB PO SCH (09:41)
[2017-05-06] MEDS: CHOLECALCIFEROL VIT D3 2,000 UNITS TAB/CAP PO SCH (09:41)
[2017-05-06] MEDS: PRAVASTATIN SODIUM 10 MG TAB PO SCH (09:41)
[2017-05-06] MEDS: ASPIRIN 81 MG CHEWABLE TAB PO SCH (09:41)
[2017-05-06] MEDS: THIAMINE HCL 100 MG TAB PO SCH (09:41)
--- NOTE | 2017-05-06 14:32 | SOAPPROG ---
SOAP Progress Note Assessment/Plan: Assessment: 81 yo F s/p cerebrovascular accident on 04/26/17 in the left basal ganglia resulting in aphasia, with balance impairment, cognitive impairment and h/o EtOH : * Gait instability and need for assistance with activities of daily living. Initial FIM 75 as of 04/30/17; improved to 86 as of 05/06/2017.. Lopez Balance Inventory 30/56 on 04/29/17, indicating elevated fall risk. Lopez has improved considerably but dynamic balance testing is still abnormal. Walked >500' CGA; reduced R awareness and impaired path-finding.. Disorganized re ADLs and needs cuing for structure. ontinue Physical and occupational therapies to optimize mobility and activities of daily living. * Acute worsening of balance and gait 05/03/17. Not orthostatic. May be adverse effect of trazodone last night. Better later in the day. D/C'd trazodone, ordered melatonin. Resolved 05/04/17. * Memory loss noted over approximately a year prior to the stroke. Speech therapy notes decreased memory, problem solving, attention and executive function. * Expressive aphasia. Word-finding difficulty, paraphasia, neologisms and decreased awareness of deficits. Also has receptive aphasia. Continue treatments per Speech and Language Pathology. * Hypertension. BP above target for secondary prevention. Increase amlodipine from 2.5 mg QD to 5 mg QD on 04/30/17. Continue to monitor. * Urinary incontinence. UTI ruled out in the acute care hospital. Initiate scheduled toileting and rehabilitation bladder program, starting 04/30/2017. * History of alcohol abuse and dependence. She was advised to reduce her alcohol use or eliminate it per Neurology and the hospital physicians. She is treated with folic acid and thiamine. She has had no signs or symptoms of alcohol withdrawal. * Weight loss. TSH was normal on labs 04/29/2017. Appreciate assistance of middle school science teacher. Loss of 5 kg from 04/29/17 to 05/02/17? Measurement error? Change weights to QD. * Vitamin-D deficiency. Initiate supplement * Atrial enlargement on echocardiogram. She is to have a monitor placed for evaluation regarding possible occult atrial fibrillation. Unclear whether this will take place during her rehabilitation stay or after discharge. Attended staffing, 15 minutes. Discussed with case management, dietitian, nursing, PT, OT, EGG WORKER. Advising supervision for safety with ADLs and mobility. Lives with with multiple steps in the home. Unclear how much assistance can provide. Attendant family meeting, patient, 2 sons and present. Discussed discharge options including hiring help in the home or assisted living. Continue discharge date of 05/12/2017. Follow-up after discharge with PCP Louis Rosales and scientific diver Sunday Ascencio. 05/06/17 14:27 Subjective: No complaints. Feels that her ability to find words is improving. Wants to know when she can go home. Denies fevers, chills, cough, dyspnea. Reports good appetite. Objective: Vital Signs Temp Pulse Resp BP Pulse Ox 36.6 C 78 16 124/67 H 95 05/06/17 08:00 05/06/17 08:00 05/06/17 08:00 05/06/17 09:41 05/06/17 08:00 05/05/17 05/06/17 05/07/17 05:59 05:59 05:59 Intake Total 840 1011 600 Output Total 600 1400 Balance 240 -389 600 - Time Spent With Patient Time Spent With Patient: Greater than 35 minutes floor time today, including more than 50% of time in coordination of care and counseling during staffing meeting and family meeting Physical Exam - Physical Exam General Appearance: alert, no apparent distress, cachetic Respiratory: normal breath sounds, No crackles, No rhonchi, No wheezing Cardiac/Chest: regular rate, rhythm, No diastolic murmur, No systolic murmur Skin: normal color, warm/dry Neuro/Psych: alert, normal mood/affect ICD10 Worksheet Patient Problems: Problems Problem Status Onset Hypertension Acute 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
[2017-05-06] MEDS: MELATONIN 3 MG TAB PO SCH (20:14)
[2017-05-07] MEDS: ASPIRIN 81 MG CHEWABLE TAB PO SCH (08:27)
[2017-05-07] MEDS: MULTIVITAMINS W-MINERALS 1 EACH TAB PO SCH (08:28)
[2017-05-07] MEDS: CHOLECALCIFEROL VIT D3 2,000 UNITS TAB/CAP PO SCH (08:29)
[2017-05-07] MEDS: THIAMINE HCL 100 MG TAB PO SCH (08:29)
[2017-05-07] MEDS: FOLIC ACID 1 MG TAB PO SCH (08:29)
[2017-05-07] MEDS: PRAVASTATIN SODIUM 10 MG TAB PO SCH (08:29)
--- NOTE | 2017-05-07 13:45 | SOAPPROG ---
SOAP Progress Note Assessment/Plan: Assessment: 81 yo F s/p cerebrovascular accident on 04/26/17 in the left basal ganglia resulting in aphasia, with balance impairment, cognitive impairment and h/o EtOH : * Gait instability and need for assistance with activities of daily living. Initial FIM 75 as of 04/30/17; improved to 86 as of 05/06/2017.. Lopez Balance Inventory 30/56 on 04/29/17, indicating elevated fall risk. Lopez has improved considerably but dynamic balance testing is still abnormal. Walked >500' CGA; reduced R awareness and impaired path-finding.. Disorganized re ADLs and needs cuing for structure. ontinue Physical and occupational therapies to optimize mobility and activities of daily living. * Acute worsening of balance and gait 05/03/17. Not orthostatic. May be adverse effect of trazodone last night. Better later in the day. D/C'd trazodone, ordered melatonin. Resolved 05/04/17. * Memory loss noted over approximately a year prior to the stroke. Speech therapy notes decreased memory, problem solving, attention and executive function. * Expressive aphasia. Word-finding difficulty, paraphasia, neologisms and decreased awareness of deficits. Also has receptive aphasia. Continue treatments per Speech and Language Pathology. * Hypertension. BP above target for secondary prevention. Increase amlodipine from 2.5 mg QD to 5 mg QD on 04/30/17. Continue to monitor. * Urinary incontinence. UTI ruled out in the acute care hospital. Initiate scheduled toileting and rehabilitation bladder program, starting 04/30/2017. * History of alcohol abuse and dependence. She was advised to reduce her alcohol use or eliminate it per Neurology and the hospital physicians. She is treated with folic acid and thiamine. She has had no signs or symptoms of alcohol withdrawal. * Weight loss. TSH was normal on labs 04/29/2017. Appreciate assistance of riveter pneumatic. Loss of 5 kg from 04/29/17 to 05/02/17? Measurement error? Change weights to QD. * Vitamin-D deficiency. Initiate supplement * Atrial enlargement on echocardiogram. She is to have a monitor placed for evaluation regarding possible occult atrial fibrillation. Unclear whether this will take place during her rehabilitation stay or after discharge. Needs supervision for safety with ADLs and mobility. Lives with with multiple steps in the home. Unclear how much assistance can provide. Discharge options include hiring help in the home or assisted living. Continue discharge date of 05/12/2017. Follow-up after discharge with PCP Louis Rosales and vehicle dynamics engineer Sunday Ascencio. 05/07/17 13:43 Subjective: No complaints. Says she slept better last night. There has reports that she was up twice for toileting. Denies pain, cough, dyspnea, fevers, chills. Objective: Vital Signs Temp Pulse Resp BP Pulse Ox 36.6 C 63 16 122/76 H 94 05/07/17 06:11 05/07/17 06:11 05/07/17 06:11 05/07/17 08:28 05/07/17 06:11 05/06/17 05/07/17 05/08/17 05:59 05:59 05:59 Intake Total 1011 1250 180 Output Total 1400 Balance -389 1250 180 Physical Exam - Physical Exam General Appearance: alert, no apparent distress, cachetic Respiratory: No respiratory distress, No accessory muscle use Skin: normal color, warm/dry Neuro/Psych: alert, normal mood/affect, abnormal gait (Tends to weave to right with minor LOB, contact guard per son accompanied by physical therapist.) ICD10 Worksheet Patient Problems: Problems Problem Status Onset Hypertension Acute 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
[2017-05-07] MEDS: MELATONIN 3 MG TAB PO SCH (20:42)
[2017-05-08] MEDS: MULTIVITAMINS W-MINERALS 1 EACH TAB PO SCH (08:39)
[2017-05-08] MEDS: CHOLECALCIFEROL VIT D3 2,000 UNITS TAB/CAP PO SCH (08:39)
[2017-05-08] MEDS: ASPIRIN 81 MG CHEWABLE TAB PO SCH (08:39)
[2017-05-08] MEDS: PRAVASTATIN SODIUM 10 MG TAB PO SCH (08:39)
[2017-05-08] MEDS: THIAMINE HCL 100 MG TAB PO SCH (08:39)
[2017-05-08] MEDS: FOLIC ACID 1 MG TAB PO SCH (08:40)
--- NOTE | 2017-05-08 12:21 | SOAPPROG ---
SOAP Progress Note Assessment/Plan: Assessment: 81 yo F s/p cerebrovascular accident on 04/26/17 in the left basal ganglia resulting in aphasia, with balance impairment, cognitive impairment and h/o EtOH : * Basal Ganglia CVA. Left side, resulting in aphasia and gait instability and need for assistance with activities of daily living. Initial FIM 75 as of ; improved to 86 as of 05/06/2017. Lopez Balance Inventory 30/56 on 04/29/17, indicating elevated fall risk. Lopez has improved considerably but dynamic balance testing is still abnormal. Walked >500' CGA; reduced R awareness and impaired path-finding.. Disorganized re ADLs and needs cuing for structure. Continue Physical and occupational therapies to optimize mobility and activities of daily living. * Sleep disturbance. Difficulty sleeping 2/2 perception of excessive nocturnal stimulation, D/C'd trazodone b/c of possible exacerbation of gait imbalance, patient attempting to avoid ambien - unsuccessful on 3mg melatonin, d/w patient, recommend 6mg to increase deep sleep * Memory loss with suspected chronic mild cognitive impairment. Has been noted over approximately a year prior to the stroke. Speech therapy notes decreased memory, problem solving, attention and executive function. * Expressive aphasia. Word-finding difficulty, paraphasia, neologisms and decreased awareness of deficits. Also has receptive aphasia. Continue treatments per Speech and Language Pathology. - patient increasingly aware of deficits today * Hypertension. BP at target for secondary prevention. Cont amlodipine 5 mg QD. * Urinary incontinence. UTI ruled out in the acute care hospital. Initiate scheduled toileting and rehabilitation bladder program, starting 04/30/2017. * History of alcohol abuse and dependence. She was advised to reduce her alcohol use or eliminate it per Neurology and the hospital physicians. She is treated with folic acid and thiamine. She has had no signs or symptoms of alcohol withdrawal. * Weight loss. TSH was normal on labs 04/29/2017. Appreciate assistance of senior care specialist. Change weights to QD. * Vitamin-D deficiency. Initiate supplement * Atrial enlargement on echocardiogram. She is to have a monitor placed for evaluation regarding possible occult atrial fibrillation. Unclear whether this will take place during her rehabilitation stay or after discharge. Needs supervision for safety with ADLs and mobility. Lives with with multiple steps in the home. Unclear how much assistance can provide. Discharge options include hiring help in the home or assisted living. Continue discharge date of 05/12/2017. Follow-up after discharge with PCP Louis Rosales and silk screen printer Sunday Ascencio. Subjective: patient reports ongoing sleep disturbance, interacting well with friend Objective: Vital Signs Temp Pulse Resp BP Pulse Ox 37.0 C 68 14 120/57 L 96 05/08/17 06:28 05/08/17 06:28 05/08/17 06:28 05/08/17 08:40 05/08/17 06:28 05/07/17 05/08/17 05/09/17 05:59 05:59 05:59 Intake Total 1250 1610 240 Output Total 1900 Balance 1250 -290 240 Physical Exam - Physical Exam General Appearance: alert, no apparent distress, thin, No obtunded, No anxiety Respiratory: chest non-tender, lungs clear, normal breath sounds, No respiratory distress, No crackles, No rales, No rhonchi Cardiac/Chest: normal peripheral pulses, regular rate, rhythm, No edema, No irregularly irregular Abdomen: normal bowel sounds, non-tender, soft, No distended, No guarding Extremities: other (low muscle mass bilat LE) Neuro/Psych: oriented x 3, aphasia (mild word-finding difficulty and thought- blocking, resolved w/ slowing her speech and intention, CN II-XII intact and test, motor 5/5 bilat UE/LE, sensation intact bilat, cooperative and follows commands, not encephalopathic) ICD10 Worksheet Patient Problems: Problems Problem Status Onset Stroke due to embolism of middle cerebral artery Acute Hypertension Acute Word finding difficulty Acute Urinary tract infection Acute
[2017-05-08] MEDS: MELATONIN 3 MG TAB PO SCH (21:03)
[2017-05-09] MEDS: FOLIC ACID 1 MG TAB PO SCH (08:45)
[2017-05-09] MEDS: MULTIVITAMINS W-MINERALS 1 EACH TAB PO SCH (08:45)
[2017-05-09] MEDS: CHOLECALCIFEROL VIT D3 2,000 UNITS TAB/CAP PO SCH (08:45)
[2017-05-09] MEDS: ASPIRIN 81 MG CHEWABLE TAB PO SCH (08:46)
[2017-05-09] MEDS: PRAVASTATIN SODIUM 10 MG TAB PO SCH (08:46)
[2017-05-09] MEDS: THIAMINE HCL 100 MG TAB PO SCH (08:47)
--- NOTE | 2017-05-09 13:13 | SOAPPROG ---
SOAP Progress Note Assessment/Plan: Assessment: 81 yo F s/p cerebrovascular accident on 04/26/17 in the left basal ganglia resulting in aphasia, with balance impairment, cognitive impairment and h/o EtOH Plan: * Basal Ganglia CVA. Left side, resulting in aphasia and gait instability and need for assistance with activities of daily living. Initial FIM 75 as of ; improved to 86 as of 05/06/2017. Lopez Balance Inventory 30/56 on 04/29/17, indicating elevated fall risk. Lopez has improved considerably but dynamic balance testing is still abnormal. Walked >500' CGA; reduced R awareness and impaired path-finding.. Disorganized re ADLs and needs cuing for structure. Continue Physical and occupational therapies to optimize mobility and activities of daily living. * Sleep disturbance. Difficulty sleeping 2/2 perception of excessive nocturnal stimulation, D/C'd trazodone b/c of possible exacerbation of gait imbalance, patient attempting to avoid ambien - unsuccessful on 3mg melatonin, d/w patient, increased to 6mg w/ improvement in deep sleep * Memory loss with suspected chronic mild cognitive impairment. Has been noted over approximately a year prior to the stroke. Speech therapy notes decreased memory, problem solving, attention and executive function. * Expressive aphasia. Word-finding difficulty, paraphasia, neologisms and decreased awareness of deficits. Also has receptive aphasia. Continue treatments per Speech and Language Pathology. - patient reports ongoing deficits today * Hypertension. BP at target for secondary prevention. Cont amlodipine 5 mg QD , SBP 110-120 o/n * Urinary incontinence. UTI ruled out in the acute care hospital. Initiated scheduled toileting and rehabilitation bladder program, starting 04/30/2017. - reports it is only present when sitting, has good awareness, no incont today, cont scheduled voiding * History of alcohol abuse and dependence. She was advised to reduce her alcohol use or eliminate it per Neurology and the hospital physicians. She is treated with folic acid and thiamine. She has had no signs or symptoms of alcohol withdrawal. * Weight loss. TSH was normal on labs 04/29/2017. Appreciate assistance of wedding florist. Changed weights to QD. * Vitamin-D deficiency. Initiate supplement * Atrial enlargement on echocardiogram. She is to have a monitor placed for evaluation regarding possible occult atrial fibrillation. Unclear whether this will take place during her rehabilitation stay or after discharge. * Severe protein calorie malnutrition w/ low BMI. Evidenced by prox muscle wasting, BMI 14, give ensure, dietary consult Needs supervision for safety with ADLs and mobility. Lives with with multiple steps in the home. Unclear how much assistance can provide. Discharge options include hiring help in the home or assisted living. Continue discharge date of 05/12/2017. Follow-up after discharge with PCP Louis Rosales and medical coding auditor Sunday Ascencio. 05/09/17 13:09 05/09/17 13:13 Subjective: reports improved sleep, moving bowels, urinating well Objective: Vital Signs Temp Pulse Resp BP Pulse Ox 36.4 C 71 15 118/65 96 05/09/17 07:05 05/09/17 07:05 05/09/17 07:05 05/09/17 08:46 05/09/17 07:05 05/08/17 05/09/17 05/10/17 05:59 05:59 05:59 Intake Total 1610 1335 870 Output Total 1900 1850 300 Balance -290 -515 570 Physical Exam - Physical Exam General Appearance: alert, no apparent distress, No obtunded, No anxiety Respiratory: lungs clear, No respiratory distress, No rales, No rhonchi, No stridor, No wheezing Cardiac/Chest: regular rate, rhythm, No edema, No tachycardia, No systolic murmur, No irregularly irregular Abdomen: normal bowel sounds, non-tender, soft, No distended, No guarding Extremities: other (very thin w/ muscles wasting) Neuro/Psych: normal mood/affect, oriented x 3, other (CN II-XII intact and tested w/ slight word finding difficulty, concentration 7/7, does require some prompting, affect normal, cooperative and follows commands, motor 5/5 bilat UE/ LE, sensation intact bilat) ICD10 Worksheet Patient Problems: Problems Problem Status Onset Stroke due to embolism of middle cerebral artery Acute Hypertension Acute Word finding difficulty Acute Urinary tract infection Acute
[2017-05-09] MEDS: MELATONIN 3 MG TAB PO SCH (20:51)
[2017-05-10] MEDS: PRAVASTATIN SODIUM 10 MG TAB PO SCH (08:37)
[2017-05-10] MEDS: ASPIRIN 81 MG CHEWABLE TAB PO SCH (08:37)
[2017-05-10] MEDS: FOLIC ACID 1 MG TAB PO SCH (08:37)
[2017-05-10] MEDS: THIAMINE HCL 100 MG TAB PO SCH (08:37)
[2017-05-10] MEDS: CHOLECALCIFEROL VIT D3 2,000 UNITS TAB/CAP PO SCH (08:37)
[2017-05-10] MEDS: MULTIVITAMINS W-MINERALS 1 EACH TAB PO SCH (08:37)
--- NOTE | 2017-05-10 10:59 | SOAPPROG ---
SOAP Progress Note Assessment/Plan: Assessment: 81 yo F s/p cerebrovascular accident on 04/26/17 in the left basal ganglia resulting in aphasia, with balance impairment, cognitive impairment and h/o EtOH : * Gait instability and need for assistance with activities of daily living. Initial FIM 75 as of 04/30/17; improved to 86 as of 05/06/2017 and to 90 as of 05/10, with minimal functional improvement... Lopez Balance Inventory 30/56 on , indicating elevated fall risk. Lopez has improved considerably but dynamic balance testing is still abnormal. Walked >500' CGA; reduced R awareness and impaired path-finding.. Disorganized re ADLs and needs cuing for structure. Continue Physical and occupational therapies to optimize mobility and activities of daily living. * Acute worsening of balance and gait 05/03/17. Not orthostatic. May be adverse effect of trazodone last night. Better later in the day. D/C'd trazodone, ordered melatonin. Resolved 05/04/17. * Insomnia. Better with titration of melatonin from 3 mg QHS to 6 mg QHS. * Memory loss noted over approximately a year prior to the stroke. Speech therapy notes decreased memory, problem solving, attention and executive function. Social interaction has improved as of 05/10/2017 but no progress on cognitive issues otherwise. * Expressive aphasia. Word-finding difficulty, paraphasia, neologisms and decreased awareness of deficits. Also has receptive aphasia. Continue treatments per Speech and Language Pathology. * Hypertension. Adequate control after increase of amlodipine from 2.5 mg QD to 5 mg QD on 04/30/17. Continue to monitor. * Urinary incontinence. UTI ruled out in the acute care hospital. Initiate scheduled toileting and rehabilitation bladder program, starting 04/30/2017. * History of alcohol abuse and dependence. She was advised to reduce her alcohol use or eliminate it per Neurology and the hospital physicians. She is treated with folic acid and thiamine. She has had no signs or symptoms of alcohol withdrawal. Discontinue thiamine started 05/11/2017; continue multivitamin. * Weight loss. TSH was normal on labs 04/29/2017. Appreciate assistance of linux solaris administrator. Loss of 5 kg from 04/29/17 to 05/02/17? Measurement error? Change weights to QD. * Vitamin-D deficiency. Initiate supplement * Atrial enlargement on echocardiogram. She is to have a monitor placed for evaluation regarding possible occult atrial fibrillation. Unclear whether this will take place during her rehabilitation stay or after discharge. Attended staffing, 15 minutes. Discussed with case management, nursing, pharmacist, PT, OT, CARPENTER LABOR SUPERVISOR. Needs supervision for safety with ADLs and mobility. Lives with with multiple steps in the home. Unclear how much assistance can provide. They plan to higher hiring help in the home; possibility of assisted living. Later Continue discharge date of 05/12/2017. Home PT, OT, CARPENTER LABOR SUPERVISOR. Follow-up after discharge with PCP Louis Rosales and wheel braider Sunday Ascencio. 05/10/17 11:57 Subjective: No complaints. Slept okay last night. Not in pain, no fevers, chills, cough, dyspnea. Feels that her walking and balance have improved. Objective: Vital Signs Temp Pulse Resp BP Pulse Ox 36.4 C 70 20 130/72 H 97 05/10/17 08:00 05/10/17 08:00 05/10/17 08:00 05/10/17 08:37 05/10/17 08:00 05/09/17 05/10/17 05/11/17 05:59 05:59 05:59 Intake Total 1335 1430 Output Total 1850 1850 Balance -515 -420 - Time Spent With Patient Time Spent With Patient: Greater than 35 minutes floor time today, including more than 50% of time in coordination of care during staffing meeting, and counseling patient. Physical Exam - Physical Exam General Appearance: alert, no apparent distress, cachetic Respiratory: normal breath sounds, No crackles, No rhonchi, No wheezing Cardiac/Chest: regular rate, rhythm, No diastolic murmur, No systolic murmur Skin: normal color, warm/dry Neuro/Psych: alert, normal mood/affect, oriented x 3 ICD10 Worksheet Patient Problems: Problems Problem Status Onset Hypertension Acute 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
[2017-05-10] MEDS: MELATONIN 3 MG TAB PO SCH (20:51)
[2017-05-11] MEDS: MULTIVITAMINS W-MINERALS 1 EACH TAB PO SCH (08:27)
[2017-05-11] MEDS: FOLIC ACID 1 MG TAB PO SCH (08:27)
[2017-05-11] MEDS: PRAVASTATIN SODIUM 10 MG TAB PO SCH (08:27)
[2017-05-11] MEDS: ASPIRIN 81 MG CHEWABLE TAB PO SCH (08:27)
[2017-05-11] MEDS: CHOLECALCIFEROL VIT D3 2,000 UNITS TAB/CAP PO SCH (08:27)
--- NOTE | 2017-05-11 16:01 | SOAPPROG ---
SOAP Progress Note Assessment/Plan: Assessment: 81 yo F s/p cerebrovascular accident on 04/26/17 in the left basal ganglia resulting in aphasia, with balance impairment, cognitive impairment and h/o EtOH : * Gait instability and need for assistance with activities of daily living. Initial FIM 75 as of 04/30/17; improved to 86 as of 05/06/2017 and to 90 as of 05/10, with minimal functional improvement... Lopez Balance Inventory 30/56 on , indicating elevated fall risk. Lopez has improved considerably but dynamic balance testing is still abnormal. Walked >500' CGA; reduced R awareness and impaired path-finding.. Disorganized re ADLs and needs cuing for structure. Continue Physical and occupational therapies to optimize mobility and activities of daily living. * Insomnia. Better with titration of melatonin from 3 mg QHS to 6 mg QHS. * Memory loss noted over approximately a year prior to the stroke. Speech therapy notes decreased memory, problem solving, attention and executive function. Social interaction has improved as of 05/10/2017 but no progress on cognitive issues otherwise. * Expressive aphasia. Word-finding difficulty, paraphasia, neologisms and decreased awareness of deficits. Also has receptive aphasia. Continue treatments per Speech and Language Pathology. * Urinary incontinence. UTI ruled out in the acute care hospital. Initiate scheduled toileting and rehabilitation bladder program, starting 04/30/2017. * Weight loss. TSH was normal on labs 04/29/2017. Appreciate assistance of marketing planning manager. Loss of 5 kg from 04/29/17 to 05/02/17? Measurement error? Change weights to QD. Chronic/stable issues: * History of alcohol abuse and dependence. She was advised to reduce her alcohol use or eliminate it per Neurology and the hospital physicians. She is treated with folic acid and thiamine. She has had no signs or symptoms of alcohol withdrawal. Discontinue thiamine started 05/11/2017; continue multivitamin. * Acute worsening of balance and gait 05/03/17 due to trazodone the previous night. Improved later in the day. D/C'd trazodone, ordered melatonin. Resolved 05/04/17. * Vitamin-D deficiency. Initiate supplement * Hypertension. Adequate control after increase of amlodipine from 2.5 mg QD to 5 mg QD on 04/30/17. Continue to monitor. * Atrial enlargement on echocardiogram. She is to have a monitor placed for evaluation regarding possible occult atrial fibrillation. Unclear whether this will take place during her rehabilitation stay or after discharge. Needs supervision for safety with ADLs and mobility. Lives with with multiple steps in the home. Unclear how much assistance can provide. They plan to hire help in the home; possibility of subsequent move to assisted living. Continue discharge date of 05/12/2017. Home PT, OT, FINE DINING SERVER. Follow-up after discharge with PCP Louis Rosales and marble machine operator Sunday Ascencio. 05/11/17 15:58 Subjective: No complaints. Happy to be going home tomorrow. Denies cough, dyspnea, fevers , chills. Objective: Vital Signs Temp Pulse Resp BP Pulse Ox 36.6 C 69 16 157/84 H 97 05/11/17 08:00 05/11/17 08:00 05/11/17 08:00 05/11/17 08:26 05/11/17 08:00 05/10/17 05/11/17 05/12/17 05:59 05:59 05:59 Intake Total 1430 580 360 Output Total 1850 600 Balance -420 -20 360 Physical Exam - Physical Exam General Appearance: WD/WN, alert, no apparent distress Respiratory: normal breath sounds, No crackles, No rhonchi, No wheezing Cardiac/Chest: regular rate, rhythm, No diastolic murmur, No systolic murmur Skin: normal color, warm/dry Neuro/Psych: no motor/sensory deficits, alert, normal mood/affect, oriented x 3 ICD10 Worksheet Patient Problems: Problems Problem Status Onset Hypertension Acute 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
[2017-05-11 18:12] VITALS: RESP 18
[2017-05-11] MEDS: MELATONIN 3 MG TAB PO SCH (20:36)
[2017-05-12 07:53] VITALS: BP 121/76; PULSE 71; TEMP 97.9; O2SAT 94
[2017-05-12] MEDS: ASPIRIN 81 MG CHEWABLE TAB PO SCH (08:18)
[2017-05-12] MEDS: PRAVASTATIN SODIUM 10 MG TAB PO SCH (08:18)
[2017-05-12] MEDS: CHOLECALCIFEROL VIT D3 2,000 UNITS TAB/CAP PO SCH (08:18)
[2017-05-12] MEDS: MULTIVITAMINS W-MINERALS 1 EACH TAB PO SCH (08:18)
[2017-05-12] MEDS: FOLIC ACID 1 MG TAB PO SCH (08:18)
--- NOTE | 2017-05-12 14:41 | GDS ---
[f rep st] DISCHARGE SUMMARY ADMITTING DIAGNOSIS: Debility, status post left basal ganglia cerebrovascular accident. DISCHARGE DIAGNOSIS: Debility, status post left basal ganglia cerebrovascular accident. OTHER DISCHARGE DIAGNOSES: 1. Aphasia. 2. Balance impairment. 3. Memory loss. 4. Hypertension. 5. Vitamin D deficiency. CONSULTATIONS: None. PROCEDURES: None. COMPLICATIONS: None. HISTORY AND HOSPITAL COURSE: The patient was admitted from [facility], where she had presented on 04/26/2017 with slurred speech and word-finding difficulties. A brain MRI showed acute infarct in the left frontal lobe and the left basal ganglia. Echocardiogram showed no cardioembolic source, but she had [id number] mitral regurgitation. Angiography revealed moderate stenosis of the mid internal carotid artery bilaterally and moderate stenosis proximal to the mid right posterior cerebral artery. She also was noted to have extensive periventricular and deep hemispheric white-matter changes consistent with small-vessel ischemic disease. She was treated for a stroke with aspirin and atorvastatin. She participated in therapies and was appropriate for inpatient rehabilitation. She had improvement during her stay. Her initial functional independence measure was 75 on 04/30/2017. This is consistent with needing assistance in most activities of daily living and mobility tasks at the half-way level. She improved to 86 as of 05/06/2017 and to 90 as of 05/10/2017; these two scores are consistent with assisted living-level of function. She initially had poor balance with a Lopez balance inventory of 30/56 on 04/29/2017. Lopez improved considerably, but she was still noted to have impaired dynamic balance. She was able to walk greater than 500 feet with contact guard assist. She was noted to have reduced awareness of the right side and impaired path finding. Regarding activities of daily living, she was disorganized and needed cuing for structure. She had insomnia. She had been using zolpidem for many years. Zolpidem was discontinued due to possible effects on memory, cognition, and balance with long -term use. She was treated with melatonin 3 mg q.h.s., which was eventually titrated to 6 mg q.h.s., and she had better sleep. Regarding cognitive impairment, she was seen by speech therapy. She was noted to have decreased memory, problem solving, attention, and executive function. Speech therapy also addressed aphasia she had word-finding difficulty, paraphasias, and neologisms, and had decreased awareness of her deficits. There was also receptive aphasia, and she required repetition to understand at times. There was little progress in this regard during her stay. She was noted to be underweight and cachectic. She was seen by the dietitian and was prescribed supplements. She had some weight gain during her stay. Given her cachexia, a vitamin D level was checked, and it was 19, which is markedly low. She was initiated on vitamin D supplementation. She came from the hospital with amlodipine 2.5 mg daily for hypertension; this was titrated to 5 mg daily with good control of her blood pressure. PHYSICAL EXAMINATION DAY OF DISCHARGE: VITAL SIGNS: Blood pressure is 121/76, heart rate is 71, respiratory rate is 18, oxygen saturation is 94% on room air, temperature is 36.6 degrees centigrade. Her most recent weight was 40.5 kg on 05/12/2017. GENERAL: This is a thin woman sitting in a chair, cooperative, and in no acute distress. HEART: There is a regular rate and rhythm with no murmurs, rubs, or gallops. LUNGS: Clear to auscultation bilaterally. ABDOMEN : Soft, nontender, and nondistended with normoactive bowel sounds. NEUROLOGIC : She is alert and oriented. She is aware of her discharge home today. Cranial nerves 2 through 12 are grossly intact. No focal weakness. Sensation is intact to light touch. She has some word-finding difficulty. CONDITION UPON DISCHARGE: Good. ACTIVITY: Ad rudi but she needs supervision for safety with activities of daily living and mobility. DIET: Regular. DATE OF NEXT APPOINTMENT: She has followup with world renowned chef and restaurant owner, Dr. Maury Ascencio for placement of a heart monitor to evaluate for occult atrial fibrillation as a possible etiology of her stroke. She has followup with a new primary care physician,. ISSUES TO BE ADDRESSED AT FOLLOWUP: 1. Functional status and safety: She will continue physical and occupational therapy at home and can follow up with her primary care provider, as well. 2. Cognitive impairment and aphasia: She will continue to have therapy with speech and language pathology at home. 3. Insomnia: Continue melatonin, though this typically loses effect after several days. She can follow up with primary care regarding optimal treatment, including possible cognitive behavioral therapy, as most medications for sleep can have adverse effects on memory and balance. 4. Hypertension: Adequate control on current medications. Follow up with primary care. 5. History of alcohol abuse and dependence. She had been advised by Neurology in the hospital to discontinue using alcohol, and she was encouraged to maintain abstinence during her stay on the inpatient rehabilitation. 6. Weight loss and vitamin D deficiency. Continue supplementation regarding both vitamin D, protein, and calories. 7. 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 Follow up with Cardiology for placement of a heart monitor. MEDICATIONS AT DISCHARGE: 1. Amlodipine 5 mg p.o. daily. 2. Cholecalciferol 2000 units p.o. daily. 3. Melatonin 6 mg p.o. q.h.s. 4. Aspirin 81 mg p.o. daily. 5. Folic acid 1 mg p.o. daily. 6. Multivitamin 1 p.o. daily. 7. Pravastatin 10 mg p.o. daily. /[id number]/MODL MTDD
== END 2017-05-12 17:23 | disposition home health service (06) | DRG 57 ==
LOC: BREH 12:30
PROVIDERS: ADMIT Internal Medicine; ATTEND Internal Medicine
PROC: F07Z8FZ Transfer Training Treatment using Assistive, Adaptive, Supportive or Protective Equipment (ICD-10-PCS; principal; 2017-04-28)
PROC: F0636ZZ Communicative/Cognitive Integration Skills Treatment of Neurological System - Whole Body (ICD-10-PCS; principal; 2017-04-28)
PROC: F08Z1FZ Dressing Techniques Treatment using Assistive, Adaptive, Supportive or Protective Equipment (ICD-10-PCS; principal; 2017-04-28)
PROC: F07Z5FZ Bed Mobility Treatment using Assistive, Adaptive, Supportive or Protective Equipment (ICD-10-PCS; principal; 2017-04-28)
PROC: F08Z2FZ Grooming/Personal Hygiene Treatment using Assistive, Adaptive, Supportive or Protective Equipment (ICD-10-PCS; principal; 2017-04-28)
DX: I69.320 Aphasia following cerebral infarction (principal); Z68.1 Body mass index [BMI] 19.9 or less, adult; I69.322 Dysarthria following cerebral infarction; I69.398 Other sequelae of cerebral infarction; I65.23 Occlusion and stenosis of bilateral carotid arteries; R26.89 Other abnormalities of gait and mobility; R41.3 Other amnesia; R41.840 Attention and concentration deficit; R32 Unspecified urinary incontinence; I73.9 Peripheral vascular disease, unspecified; F10.20 Alcohol dependence, uncomplicated; R63.6 Underweight; I10 Essential (primary) hypertension; G47.00 Insomnia, unspecified; E55.9 Vitamin D deficiency, unspecified; Z85.3 Personal history of malignant neoplasm of breast; Z85.41 Personal history of malignant neoplasm of cervix uteri
CPT/HCPCS: 82607-90; 92507-GN; 92522-GN; 97110-GO; 97110-GP; 97112-GO; 97112-GP; 97116-GP; 97162-GP; 97166-GO; 97530-GO; 97530-GP; 97532-GO; 97535-GO; 99366-GO